=== PATIENT | male | born 1945 | race Caucasian/White ===

== ENCOUNTER 2019-01-26 20:06 | Inpatient (IN) | payer MEDICARE, OTHER, SELFPAY ==
[2019-01-26] VITALS (7 sets, daily range): BP systolic 94–136; BP diastolic 52–90; PULSE 74–150; RESP 10–23; O2SAT 93–98
--- NOTE | 2019-01-26 20:10 | DI.RAD.S_ITS ---
PROCEDURE: XR ACUTE ABDOMEN SERIES INDICATIONS: Abdominal pain, chest pain, near syncope TECHNIQUE: One view chest and two views of the abdomen were acquired. COMPARISON: None. FINDINGS: Surgical changes and devices: Multiple median sternotomy wires are intact. Post cholecystectomy clips.. Chest: Eventration of the right hemidiaphragm. Lungs are clear. Heart size is normal. No pleural effusions. No pneumoperitoneum. Abdomen: Bowel gas pattern is normal. No suspicious calcifications. Visualized solid organ contours appear normal. Bones: No suspicious bony lesions. IMPRESSION: Chest and abdomen without acute radiographic abnormalities. Dictated by: Alban Jorge M.D. on 01/26/2019 at 21:14 Approved by: Alban Jorge M.D. on 01/26/2019 at 21:15
--- NOTE | 2019-01-26 20:11 | ED.SYNCOPE ---
HPI - Syncope General Chief Complaint: Arrhythmia/Palpitations Stated Complaint: Constipated, Dizzy Time Seen by Provider: 01/26/19 20:10 Source: patient and EMS Mode of arrival: EMS Limitations: no limitations History of Present Illness HPI narrative: 73-year-old male with extensive cardiac history presents by EMS for evaluation of a day and a half worth of constipation, and episode of straining on the toilet followed closely by near-syncope. On arrival EMS found his heart rate to be in the 150s. Patient denies any chest pain or shortness of breath. He denies any ongoing dizziness, weakness or lightheadedness. He denies any fever or shaking chills. He denies any abdominal pain or trouble with urination. He states he has been having episodes of dizziness ever since being started on a new blood pressure pill started recently by his primary care provider. 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 [place] complaint: felt faint Onset (ago): minute(s) -: second(s) Prodromal symptoms: lightheaded Witnessed: no Injuries sustained associated with event: none Treatments prior to arrival: none Related Data Home Medications Medication Instructions Recorded Confirmed loratadine [Claritin] 10 mg PO QDAY #0 03/29/13 01/27/19 metoprolol tartrate 50 mg PO QDAY #0 03/29/13 01/27/19 ranitidine HCl [Zantac] 150 mg PO BIDP #0 03/29/13 01/27/19 aspirin 81 mg PO DAILY 01/27/19 01/27/19 cholecalciferol (vitamin D3) 2,000 unit PO DAILY 01/27/19 01/27/19 [Vitamin D3] clopidogrel [Plavix] 75 mg PO DAILY 01/27/19 01/27/19 fluticasone propionate [Flonase 1 spray INTRANASAL DAILY PRN 01/27/19 01/27/19 Allergy Relief] furosemide [Lasix] 20 mg PO DAILY 01/27/19 01/27/19 lorazepam [Ativan] 0.5 mg PO QDAY PRN 01/27/19 01/27/19 losartan 50 mg PO DAILY 01/27/19 01/27/19 multivitamin 1 tab PO DAILY 01/27/19 01/27/19 potassium chloride 20 meq PO DAILY 01/27/19 01/27/19 Slow-Mag 1 tab PO DAILY 01/28/19 01/28/19 zolpidem [Ambien] 5 mg PO BEDTIME PRN 01/28/19 01/28/19 Allergies Allergy/AdvReac Type Severity Reaction Status Date / Time Dljartw-Lum-Lld Reductase Allergy Intermediate Generalized Verified 01/27/19 08:24 Inhibitor swelling Sulfa (Sulfonamide Allergy Intermediate LOW Verified 01/27/19 08:24 Antibiotics) PLATELETS, BRUISING, MOUTH SORES amoxicillin [From Augmentin] AdvReac Mild WORSENING Verified 01/27/19 08:24 OF ACID REFLUX clavulanic acid AdvReac Mild WORSENING Verified 01/27/19 08:24 [From Augmentin] OF ACID REFLUX Review of Systems Constitutional Denies chills, Denies fever(s), Denies lethargy and Denies weakness Eyes Denies change in vision, Denies eye discharge, Denies irritation and Denies loss of vision ENT Ears, Nose, Mouth, and Throat: Denies change in voice, Denies neck pain and Denies sore throat Cardiovascular Denies chest pain, Reports rapid heart rate, Reports irregular heart rhythm, Reports lightheadedness, Denies palpitations, Denies dyspnea, Denies dyspnea on exertion and Denies orthopnea Respiratory Denies cough, Denies dyspnea, Denies dyspnea on exertion and Denies wheezing Gastrointestinal Gastrointestinal: Denies abdominal pain, Denies change in bowel habits, Reports constipation, Denies diarrhea, Denies nausea and Denies vomiting Genitourinary Denies hematuria, Denies flank pain, Denies urinary incontinence and Denies urinary urgency Musculoskeletal Denies neck pain Integumentary/Breasts Denies pruritus, Denies erythema, Denies rash and Denies wounds Neurologic Denies confusion, Denies loss of vision and Denies weakness Psychiatric Denies anxiety, Denies confusion, Denies depression, Denies homicidal ideation and Denies suicidal ideation Endocrine Denies palpitations Hematologic/Lymphatic Denies easy bruising Allergic/Immunologic Denies wheezing [facility] Medical History (Updated 01/27/19 @ 05:36 by CHRIS Sanchez) Allergic rhinitis (Chronic) Antiplatelet or antithrombotic long-term use (Chronic) Coronary artery disease (Chronic) Dyslipidemia (Chronic) Essential hypertension (Chronic) GERD (gastroesophageal reflux disease) (Chronic) JULIA (obstructive sleep apnea) (Chronic) PAF (paroxysmal atrial fibrillation) (Chronic) Valvular heart disease (Chronic) Surgical History (Updated 01/27/19 @ 05:34 by CHRIS Sanchez) Cholecystitis (Chronic) Hx of inguinal herniorrhaphy (Chronic) Family History Mother Cancer Grandmother CVA (cerebral vascular accident) Father Hypertension Social History household members: spouse Smoking Status: Never smoker Family History Mother Cancer Grandmother CVA (cerebral vascular accident) Father Hypertension Social History household members: spouse Smoking Status: Never smoker Exam Narrative Exam Narrative: GENERAL: 73-year-old male appears stated age, resting comfortably HEAD: Atraumatic. Normocephalic. No temporal or scalp tenderness. EYES: Pupils equal round and reactive. Extraocular motions intact. No scleral icterus. No injection or drainage. ENT: Nose without bleeding, purulent drainage or septal hematoma. Throat without erythema, tonsillar hypertrophy or exudate. Uvula midline. Airway patent. NECK: Trachea midline. No JVD or lymphadenopathy. Supple, nontender, no meningeal signs. CARDIOVASCULAR: Tachycardic and irregular rhythm without murmurs, gallops, or rubs. RESPIRATORY: Clear to auscultation. Breath sounds equal bilaterally. No wheezes, rales, or rhonchi. GASTROINTESTINAL: Abdomen soft, non-tender, nondistended. No hepato-splenomegaly, or palpable masses. No guarding. EXTREMITIES: No clubbing, cyanosis, or edema. No joint tenderness, effusion, or edema noted. BACK: Nontender without deformity or crepitance. No flank tenderness. NEURO: AOx3. SKIN: No rash or erythema. Initial Vital Signs Initial Vital Signs: Vital Signs Pulse Rate 149 H 01/26/19 20:10 Respiratory Rate 23 01/26/19 20:10 Blood Pressure 136/90 01/26/19 20:10 Pulse Oximetry 98 01/26/19 20:10 Course Course Narrative: Initially patient had solid response to Cardizem 10 mg which brought her heart rate from the 140s down to the 70s. At this point time patient's home metoprolol was administered orally and after period of time his heart rate remained in the 140s at which point another Cardizem push was given which again brought his heart rate down he was then switched to a Cardizem drip. He is unclear about the onset of his symptoms and thought not to be a candidate for cardioversion. He required admission for stabilization of his heart rate and ongoing evaluation for his near-syncope, which is most likely vasovagal due to constipation and bowel movement. Orders Ordered: Aspirin (Aspirin Ec) 81 mg PO DAILY [facility] Last Admin: 01/28/19 09:34 Dose: 81 mg Admin: 01/27/19 09:48 Dose: 81 mg Clopidogrel Bisulfate (Plavix) 75 mg PO DAILY [facility] Last Admin: 01/28/19 09:34 Dose: 75 mg Admin: 01/27/19 09:48 Dose: 75 mg Diltiazem HCl (Cardizem Cd) 120 mg PO DAILY [facility] Docusate Sodium (Colace) 100 mg PO BID PRN PRN Reason: Constipation Last Admin: 01/27/19 09:49 Dose: 100 mg Fluticasone Propionate (Flonase) 1 spray NASAL DAILY PRN PRN Reason: Allergy Symptoms Furosemide (Lasix) 20 mg PO DAILY [facility] Last Admin: 01/28/19 09:34 Dose: 20 mg Admin: 01/27/19 09:48 Dose: 20 mg Heparin Sodium (Porcine) (Heparin) 5,000 unit SUBCUT BID [facility] Last Admin: 01/28/19 20:36 Dose: 5,000 unit Admin: 01/28/19 09:34 Dose: 5,000 unit Admin: 01/27/19 22:32 Dose: 5,000 unit Admin: 01/27/19 09:48 Dose: 5,000 unit Loratadine (Claritin) 10 mg PO DAILY [facility] Last Admin: 01/28/19 09:35 Dose: 10 mg Admin: 01/27/19 09:48 Dose: 10 mg Admin: 01/27/19 09:47 Dose: Not Given Lorazepam (Ativan) 0.5 mg PO DAILY PRN PRN Reason: Anxiety Last Admin: 01/28/19 09:47 Dose: 0.5 mg Losartan Potassium (Cozaar) 50 mg PO DAILY [facility] Last Admin: 01/28/19 09:35 Dose: 50 mg Admin: 01/27/19 09:49 Dose: 50 mg Melatonin (Melatonin) 6 mg PO BEDTIME [facility] Metoprolol Succinate (Toprol Xl) 200 mg PO 1800 [facility] Last Admin: 01/28/19 17:12 Dose: 200 mg Ondansetron HCl (Zofran) 4 mg IV Q4HR PRN PRN Reason: Nausea And Vomiting Last Admin: 01/28/19 11:19 Dose: 4 mg Potassium Chloride (Klor-Con M20) 20 meq PO DAILY [facility] Last Admin: 01/28/19 09:36 Dose: 20 meq Admin: 01/27/19 09:49 Dose: 20 meq Ranitidine HCl (Zantac) 150 mg PO BID PRN PRN Reason: Dyspepsia Last Admin: 01/28/19 09:47 Dose: 150 mg Sodium Chloride (Normal Saline 0.9% Flush) 10 ml IV BID [facility] Last Admin: 01/28/19 20:37 Dose: 10 ml Admin: 01/28/19 09:39 Dose: 10 ml Admin: 01/27/19 22:33 Dose: 10 ml Sodium Chloride (Normal Saline 0.9% Flush) 10 ml IV PRN PRN PRN Reason: Flush Discontinued Medications Diltiazem HCl (Cardizem) 10 mg IV NOW ONE Stop: 01/26/19 20:11 Last Admin: 01/26/19 20:42 Dose: 10 mg Diltiazem HCl (Cardizem) 10 mg IV NOW ONE Stop: 01/26/19 21:45 Last Admin: 01/26/19 21:46 Dose: 10 mg Diltiazem HCl (Cardizem) 10 mg IV NOW ONE Stop: 01/28/19 18:46 Last Admin: 01/28/19 20:53 Dose: 10 mg Diltiazem HCl (Cardizem) 10 mg IV NOW ONE Stop: 01/28/19 21:32 Enalapril Maleate (Vasotec) 20 mg PO BID [facility] Last Admin: 01/27/19 11:14 Dose: Not Given Sodium Chloride (Normal Saline 0.9%) 1,000 mls @ 150 mls/hr IV CONT [facility] Last Admin: 01/27/19 06:34 Dose: 21 mls/hr Infusion: 01/27/19 06:32 Dose: 0 mls/hr Infusion: 01/27/19 03:10 Dose: 150 mls/hr Admin: 01/26/19 20:42 Dose: 150 mls/hr Diltiazem HCl 125 mg/ Dextrose 125 mls @ 5 mls/hr IV TITRATE DELANEY; Protocol Last Titration: 01/27/19 11:00 Dose: 0 mg/hr, 0 mls/hr Titration: 01/27/19 10:00 Dose: 5 mg/hr, 5 mls/hr Titration: 01/27/19 04:10 Dose: 10 mg/hr, 10 mls/hr Titration: 01/27/19 03:10 Dose: 5 mg/hr, 5 mls/hr Titration: 01/27/19 02:55 Dose: 5 mg/hr, 5 mls/hr Titration: 01/27/19 01:59 Dose: 10 mg/hr, 10 mls/hr Admin: 01/27/19 01:45 Dose: 5 mg/hr, 5 mls/hr Magnesium Sulfate (Magnesium Sulfate) 2 gm in 50 mls @ 25 mls/hr IV NOW ONE Stop: 01/27/19 10:46 Last Infusion: 01/27/19 12:22 Dose: 0 mls/hr Admin: 01/27/19 09:47 Dose: 25 mls/hr Lorazepam (Ativan) 0.5 mg PO DAILY [facility] Last Admin: 01/27/19 09:39 Dose: Not Given Admin: 01/27/19 09:39 Dose: Not Given Lorazepam (Ativan) 0.5 mg PO DAILY PRN PRN Reason: Anxiety Metoprolol Succinate (Toprol Xl) 50 mg PO NOW ONE Stop: 01/26/19 23:13 Last Admin: 01/26/19 23:48 Dose: Not Given Metoprolol Tartrate (Lopressor) 50 mg PO Q6HR [facility] Last Admin: 01/27/19 13:14 Dose: Not Given Admin: 01/27/19 09:45 Dose: 50 mg Metoprolol Tartrate (Lopressor) 50 mg PO Q6HR [facility] Last Admin: 01/28/19 06:04 Dose: 50 mg Admin: 01/27/19 23:31 Dose: 50 mg Admin: 01/27/19 17:40 Dose: 50 mg Metoprolol Tartrate (Lopressor) 2.5 mg IV NOW ONE Stop: 01/27/19 18:01 Last Admin: 01/27/19 18:15 Dose: 2.5 mg Metoprolol Tartrate (Lopressor) 50 mg PO 1200 DELANEY Stop: 01/28/19 12:01 Last Admin: 01/28/19 12:18 Dose: 50 mg Metoprolol Tartrate (Lopressor) 2.5 mg IV NOW ONE Stop: 01/28/19 13:42 Last Admin: 01/28/19 13:44 Dose: 2.5 mg Metoprolol Tartrate (Lopressor) 2.5 mg IV NOW ONE Stop: 01/28/19 17:09 Last Admin: 01/28/19 17:13 Dose: 2.5 mg Trazodone HCl (Desyrel) 25 mg PO BEDTIME ONE Stop: 01/28/19 23:49 Last Admin: 01/27/19 23:55 Dose: 25 mg Vital Signs - 8 hr 01/29/19 00:00 01/29/19 05:00 01/29/19 07:31 Temperature 97.5 F L 97.6 F 97.9 F Pulse Rate 87 97 H 98 H Respiratory Rate 20 24 18 Blood Pressure 118/73 134/75 140/86 Pulse Oximetry 95 94 95 MDM - Syncope Lab Data Result diagrams: 01/26/19 20:45 01/28/19 13:00 Lab Results 01/26/19 01/26/19 01/27/19 Range/Units 20:45 20:45 03:20 WBC 7.3 (4.5-11.0) X10^3/uL RBC 5.42 (4.5-5.9) X10^6/uL Hgb 15.5 (13.5-17.5) g/dL Hct 47.1 (41-53) % MCV 86.9 (80-100) fL MCH 28.6 (26-34) PG MCHC 32.9 (30-36) % RDW 14.6 (11.6-14.8) % Plt Count 173 (150-400) X10^3/uL Neut % (Auto) 74.6 (50-75) % Lymph % (Auto) 12.7 L (25-40) % [place] % (Auto) 9.7 (3-14) % Eos % (Auto) 2.3 (2-4) % Baso % (Auto) 0.7 (0-2) % Neut # (Auto) 5500 (2308-7959) /uL Lymph # (Auto) 900 L (4403-5946) /uL [place] # (Auto) 700 (0-900) /uL Eos # (Auto) 200 (0-450) /uL Baso # (Auto) 100 (0-100) /uL Sodium 136 L (137-145) mmol/L Potassium 3.7 (3.4-5.1) mmol/L Chloride 99 (98-107) mmol/L Carbon Dioxide 26 (22-32) mmol/L BUN 28 H (9-20) mg/dL Creatinine 1.00 (0.66-1.25) mg/dL Estimated GFR > 60.0 (>60) mL/min BUN/Creatinine Ratio 28.0 H (6-22) Glucose 115 H (80-110) mg/dL Hemoglobin A1c (4.0-6.0) % Calcium 8.9 (8.4-10.2) mg/dL Magnesium (1.6-2.3) mg/dL Total Bilirubin 0.7 (0.2-1.3) mg/dL AST 28 (17-59) IU/L ALT 28 (21-72) IU/L Alkaline Phosphatase 95 (38-126) U/L Total Creatine Kinase 57 (55-170) U/L CK-MB (CK-2) TNP CK-MB (CK-2) Rel Index TNP Troponin I 0.036 H (0.01-0.034) ng/mL B-Natriuretic Peptide < 100 (<100) Total Protein 7.5 (6.3-8.2) g/dL Albumin 4.1 (3.5-5.0) g/dL Globulin 3.4 (1.7-4.1) g/dL Albumin/Globulin Ratio 1.2 (1.0-2.8) Lipase 102 (23-300) U/L TSH (0.47-4.68) uIU/mL Urine Color Urine Appearance Urine pH (4.5-8.0) Ur Specific [place] (1.000-1.035) Urine Protein (Negative) Urine Glucose (UA) (Negative) g/dL Urine Ketones (NEGATIVE) Urine Occult Blood (Negative) Urine Nitrate (Negative) Urine Bilirubin (NEGATIVE) Urine Urobilinogen (0.2) E.U./dL Ur Leukocyte Esterase (NEGATIVE) Urine RBC (0-5/HPF) Urine WBC (0-5/HPF) Ur Squamous Epith Cells (0-5/HPF) Urine Bacteria (None) Ur Culture Indicated? Nasal Screen MRSA (PCR) Negative for mrsa (Negative) 01/27/19 01/27/19 01/27/19 Range/Units 05:45 05:45 05:48 WBC (4.5-11.0) X10^3/uL RBC (4.5-5.9) X10^6/uL Hgb (13.5-17.5) g/dL Hct (41-53) % MCV (80-100) fL MCH (26-34) PG MCHC (30-36) % RDW (11.6-14.8) % Plt Count (150-400) X10^3/uL Neut % (Auto) (50-75) % Lymph % (Auto) (25-40) % [place] % (Auto) (3-14) % Eos % (Auto) (2-4) % Baso % (Auto) (0-2) % Neut # (Auto) (2662-6739) /uL Lymph # (Auto) (8755-7026) /uL [place] # (Auto) (0-900) /uL Eos # (Auto) (0-450) /uL Baso # (Auto) (0-100) /uL Sodium 134 L (137-145) mmol/L Potassium 3.9 (3.4-5.1) mmol/L Chloride 101 (98-107) mmol/L Carbon Dioxide 26 (22-32) mmol/L BUN 25 H (9-20) mg/dL Creatinine 0.90 (0.66-1.25) mg/dL Estimated GFR > 60.0 (>60) mL/min BUN/Creatinine Ratio 27.8 H (6-22) Glucose 155 H (80-110) mg/dL Hemoglobin A1c 6.0 (4.0-6.0) % Calcium 8.3 L (8.4-10.2) mg/dL Magnesium 1.8 (1.6-2.3) mg/dL Total Bilirubin (0.2-1.3) mg/dL AST (17-59) IU/L ALT (21-72) IU/L Alkaline Phosphatase (38-126) U/L Total Creatine Kinase (55-170) U/L CK-MB (CK-2) CK-MB (CK-2) Rel Index Troponin I 0.027 (0.01-0.034) ng/mL B-Natriuretic Peptide (<100) Total Protein (6.3-8.2) g/dL Albumin (3.5-5.0) g/dL Globulin (1.7-4.1) g/dL Albumin/Globulin Ratio (1.0-2.8) Lipase (23-300) U/L TSH 1.18 (0.47-4.68) uIU/mL Urine Color Urine Appearance Urine pH (4.5-8.0) Ur Specific [place] (1.000-1.035) Urine Protein (Negative) Urine Glucose (UA) (Negative) g/dL Urine Ketones (NEGATIVE) Urine Occult Blood (Negative) Urine Nitrate (Negative) Urine Bilirubin (NEGATIVE) Urine Urobilinogen (0.2) E.U./dL Ur Leukocyte Esterase (NEGATIVE) Urine RBC (0-5/HPF) Urine WBC (0-5/HPF) Ur Squamous Epith Cells (0-5/HPF) Urine Bacteria (None) Ur Culture Indicated? Nasal Screen MRSA (PCR) (Negative) 01/27/19 01/28/19 Range/Units 12:17 13:00 WBC (4.5-11.0) X10^3/uL RBC (4.5-5.9) X10^6/uL Hgb (13.5-17.5) g/dL Hct (41-53) % MCV (80-100) fL MCH (26-34) PG MCHC (30-36) % RDW (11.6-14.8) % Plt Count (150-400) X10^3/uL Neut % (Auto) (50-75) % Lymph % (Auto) (25-40) % [place] % (Auto) (3-14) % Eos % (Auto) (2-4) % Baso % (Auto) (0-2) % Neut # (Auto) (0534-0354) /uL Lymph # (Auto) (5990-6401) /uL [place] # (Auto) (0-900) /uL Eos # (Auto) (0-450) /uL Baso # (Auto) (0-100) /uL Sodium 137 (137-145) mmol/L Potassium 4.0 (3.4-5.1) mmol/L Chloride 99 (98-107) mmol/L Carbon Dioxide 30 (22-32) mmol/L BUN 24 H (9-20) mg/dL Creatinine 1.00 (0.66-1.25) mg/dL Estimated GFR > 60.0 (>60) mL/min BUN/Creatinine Ratio 24.0 H (6-22) Glucose 95 (80-110) mg/dL Hemoglobin A1c (4.0-6.0) % Calcium 8.8 (8.4-10.2) mg/dL Magnesium 2.0 (1.6-2.3) mg/dL Total Bilirubin (0.2-1.3) mg/dL AST (17-59) IU/L ALT (21-72) IU/L Alkaline Phosphatase (38-126) U/L Total Creatine Kinase (55-170) U/L CK-MB (CK-2) CK-MB (CK-2) Rel Index Troponin I (0.01-0.034) ng/mL B-Natriuretic Peptide (<100) Total Protein (6.3-8.2) g/dL Albumin (3.5-5.0) g/dL Globulin (1.7-4.1) g/dL Albumin/Globulin Ratio (1.0-2.8) Lipase (23-300) U/L TSH (0.47-4.68) uIU/mL Urine Color Yellow Urine Appearance Clear Urine pH 7.0 (4.5-8.0) Ur Specific [place] 1.020 (1.000-1.035) Urine Protein Negative (Negative) Urine Glucose (UA) Negative (Negative) g/dL Urine Ketones Negative (NEGATIVE) Urine Occult Blood Trace-lysed (Negative) Urine Nitrate Negative (Negative) Urine Bilirubin Negative (NEGATIVE) Urine Urobilinogen 1.0 (0.2) E.U./dL Ur Leukocyte Esterase Negative (NEGATIVE) Urine RBC None seen (0-5/HPF) Urine WBC None seen (0-5/HPF) Ur Squamous Epith Cells None seen (0-5/HPF) Urine Bacteria None seen (None) Ur Culture Indicated? Cult not indicated Nasal Screen MRSA (PCR) (Negative) Discharge Plan Departure Patient Disposition: Admitted As Inpatient Clinical Impression: Atrial fibrillation with rapid ventricular response Discharge Date/Time: 01/27/19 03:13 Interventions: ED Discharge Assessment Last Done: 01/27/19 03:12 Admit Date/Time: 01/27/19 03:12 Admit Provider: Angeles Pederson
--- NOTE | 2019-01-26 20:14 | ED_ITS ---
HPI - Syncope General Chief Complaint: Arrhythmia/Palpitations Stated Complaint: Constipated, Dizzy Time Seen by Provider: 01/26/19 20:10 Source: patient and EMS Mode of arrival: EMS Limitations: no limitations History of Present Illness HPI narrative: 73-year-old male with extensive cardiac history presents by EMS for evaluation of a day and a half worth of constipation, and episode of straining on the toilet followed closely by near-syncope. On arrival EMS found his heart rate to be in the 150s. Patient denies any chest pain or shortness of breath. He denies any ongoing dizziness, weakness or lightheadedness. He denies any fever or shaking chills. He denies any abdominal pain or trouble with urination. He states he has been having episodes of dizziness ever since being started on a new blood pressure pill started recently by his primary care provider. His manager of hospital is in [place] complaint: felt faint Onset (ago): minute(s) -: second(s) Prodromal symptoms: lightheaded Witnessed: no Injuries sustained associated with event: none Treatments prior to arrival: none Related Data Home Medications Medication Instructions Recorded Confirmed loratadine [Claritin] 10 mg PO QDAY #0 03/29/13 01/27/19 metoprolol tartrate 50 mg PO QDAY #0 03/29/13 01/27/19 ranitidine HCl [Zantac] 150 mg PO BIDP #0 03/29/13 01/27/19 aspirin 81 mg PO DAILY 01/27/19 01/27/19 cholecalciferol (vitamin D3) 2,000 unit PO DAILY 01/27/19 01/27/19 [Vitamin D3] clopidogrel [Plavix] 75 mg PO DAILY 01/27/19 01/27/19 fluticasone propionate [Flonase 1 spray INTRANASAL DAILY PRN 01/27/19 01/27/19 Allergy Relief] furosemide [Lasix] 20 mg PO DAILY 01/27/19 01/27/19 lorazepam [Ativan] 0.5 mg PO QDAY PRN 01/27/19 01/27/19 losartan 50 mg PO DAILY 01/27/19 01/27/19 multivitamin 1 tab PO DAILY 01/27/19 01/27/19 potassium chloride 20 meq PO DAILY 01/27/19 01/27/19 Slow-Mag 1 tab PO DAILY 01/28/19 01/28/19 zolpidem [Ambien] 5 mg PO BEDTIME PRN 01/28/19 01/28/19 Allergies Allergy/AdvReac Type Severity Reaction Status Date / Time [id number] Reductase Allergy Intermediate Generalized Verified 01/27/19 08:24 Inhibitor swelling Sulfa (Sulfonamide Allergy Intermediate LOW Verified 01/27/19 08:24 Antibiotics) PLATELETS, BRUISING, MOUTH SORES amoxicillin [From Augmentin] AdvReac Mild WORSENING Verified 01/27/19 08:24 OF ACID REFLUX clavulanic acid AdvReac Mild WORSENING Verified 01/27/19 08:24 [From Augmentin] OF ACID REFLUX Review of Systems Constitutional Denies chills, Denies fever(s), Denies lethargy and Denies weakness Eyes Denies change in vision, Denies eye discharge, Denies irritation and Denies loss of vision ENT Ears, Nose, Mouth, and Throat: Denies change in voice, Denies neck pain and Denies sore throat Cardiovascular Denies chest pain, Reports rapid heart rate, Reports irregular heart rhythm, Reports lightheadedness, Denies palpitations, Denies dyspnea, Denies dyspnea on exertion and Denies orthopnea Respiratory Denies cough, Denies dyspnea, Denies dyspnea on exertion and Denies wheezing Gastrointestinal Gastrointestinal: Denies abdominal pain, Denies change in bowel habits, Reports constipation, Denies diarrhea, Denies nausea and Denies vomiting Genitourinary Denies hematuria, Denies flank pain, Denies urinary incontinence and Denies urinary urgency Musculoskeletal Denies neck pain Integumentary/Breasts Denies pruritus, Denies erythema, Denies rash and Denies wounds Neurologic Denies confusion, Denies loss of vision and Denies weakness Psychiatric Denies anxiety, Denies confusion, Denies depression, Denies homicidal ideation and Denies suicidal ideation Endocrine Denies palpitations Hematologic/Lymphatic Denies easy bruising Allergic/Immunologic Denies wheezing [facility] Medical History (Updated 01/27/19 @ 05:36 by CHRIS Sanchez) Allergic rhinitis (Chronic) Antiplatelet or antithrombotic long-term use (Chronic) Coronary artery disease (Chronic) Dyslipidemia (Chronic) Essential hypertension (Chronic) GERD (gastroesophageal reflux disease) (Chronic) JULIA (obstructive sleep apnea) (Chronic) PAF (paroxysmal atrial fibrillation) (Chronic) Valvular heart disease (Chronic) Surgical History (Updated 01/27/19 @ 05:34 by CHRIS Sanchez) Cholecystitis (Chronic) Hx of inguinal herniorrhaphy (Chronic) Family History Mother Cancer Grandmother CVA (cerebral vascular accident) Father Hypertension Social History household members: spouse Smoking Status: Never smoker Family History Mother Cancer Grandmother CVA (cerebral vascular accident) Father Hypertension Social History household members: spouse Smoking Status: Never smoker Exam Narrative Exam Narrative: GENERAL: 73-year-old male appears stated age, resting comfortably HEAD: Atraumatic. Normocephalic. No temporal or scalp tenderness. EYES: Pupils equal round and reactive. Extraocular motions intact. No scleral i cterus. No injection or drainage. ENT: Nose without bleeding, purulent drainage or septal hematoma. Throat without erythema, tonsillar hypertrophy or exudate. Uvula midline. Airway patent. NECK: Trachea midline. No JVD or lymphadenopathy. Supple, nontender, no meningeal signs. CARDIOVASCULAR: Tachycardic and irregular rhythm without murmurs, gallops, or rubs. RESPIRATORY: Clear to auscultation. Breath sounds equal bilaterally. No wheezes, rales, or rhonchi. GASTROINTESTINAL: Abdomen soft, non-tender, nondistended. No hepato- splenomegaly, or palpable masses. No guarding. EXTREMITIES: No clubbing, cyanosis, or edema. No joint tenderness, effusion, or edema noted. BACK: Nontender without deformity or crepitance. No flank tenderness. NEURO: AOx3. SKIN: No rash or erythema. Initial Vital Signs Initial Vital Signs: Vital Signs Pulse Rate 149 H 01/26/19 20:10 Respiratory Rate 23 01/26/19 20:10 Blood Pressure 136/90 01/26/19 20:10 Pulse Oximetry 98 01/26/19 20:10 Course Course Narrative: Initially patient had solid response to Cardizem 10 mg which brought her heart rate from the 140s down to the 70s. At this point time patient's home metoprolol was administered orally and after period of time his heart rate remained in the 140s at which point another Cardizem push was given which again brought his heart rate down he was then switched to a Cardizem drip. He is unclear about the onset of his symptoms and thought not to be a candidate for cardioversion. He required admission for stabilization of his heart rate and ongoing evaluation for his near-syncope, which is most likely vasovagal due to constipation and bowel movement. Orders Ordered: Aspirin (Aspirin Ec) 81 mg PO DAILY [facility] Last Admin: 01/28/19 09:34 Dose: 81 mg Admin: 01/27/19 09:48 Dose: 81 mg Clopidogrel Bisulfate (Plavix) 75 mg PO DAILY [facility] Last Admin: 01/28/19 09:34 Dose: 75 mg Admin: 01/27/19 09:48 Dose: 75 mg Diltiazem HCl (Cardizem Cd) 120 mg PO DAILY [facility] Docusate Sodium (Colace) 100 mg PO BID PRN PRN Reason: Constipation Last Admin: 01/27/19 09:49 Dose: 100 mg Fluticasone Propionate (Flonase) 1 spray NASAL DAILY PRN PRN Reason: Allergy Symptoms Furosemide (Lasix) 20 mg PO DAILY [facility] Last Admin: 01/28/19 09:34 Dose: 20 mg Admin: 01/27/19 09:48 Dose: 20 mg Heparin Sodium (Porcine) (Heparin) 5,000 unit SUBCUT BID [facility] Last Admin: 01/28/19 20:36 Dose: 5,000 unit Admin: 01/28/19 09:34 Dose: 5,000 unit Admin: 01/27/19 22:32 Dose: 5,000 unit Admin: 01/27/19 09:48 Dose: 5,000 unit Loratadine (Claritin) 10 mg PO DAILY [facility] Last Admin: 01/28/19 09:35 Dose: 10 mg Admin: 01/27/19 09:48 Dose: 10 mg Admin: 01/27/19 09:47 Dose: Not Given Lorazepam (Ativan) 0.5 mg PO DAILY PRN PRN Reason: Anxiety Last Admin: 01/28/19 09:47 Dose: 0.5 mg Losartan Potassium (Cozaar) 50 mg PO DAILY [facility] Last Admin: 01/28/19 09:35 Dose: 50 mg Admin: 01/27/19 09:49 Dose: 50 mg Melatonin (Melatonin) 6 mg PO BEDTIME [facility] Metoprolol Succinate (Toprol Xl) 200 mg PO 1800 [facility] Last Admin: 01/28/19 17:12 Dose: 200 mg Ondansetron HCl (Zofran) 4 mg IV Q4HR PRN PRN Reason: Nausea And Vomiting Last Admin: 01/28/19 11:19 Dose: 4 mg Potassium Chloride (Klor-Con M20) 20 meq PO DAILY [facility] Last Admin: 01/28/19 09:36 Dose: 20 meq Admin: 01/27/19 09:49 Dose: 20 meq Ranitidine HCl (Zantac) 150 mg PO BID PRN PRN Reason: Dyspepsia Last Admin: 01/28/19 09:47 Dose: 150 mg Sodium Chloride (Normal Saline 0.9% Flush) 10 ml IV BID [facility] Last Admin: 01/28/19 20:37 Dose: 10 ml Admin: 01/28/19 09:39 Dose: 10 ml Admin: 01/27/19 22:33 Dose: 10 ml Sodium Chloride (Normal Saline 0.9% Flush) 10 ml IV PRN PRN PRN Reason: Flush Discontinued Medications Diltiazem HCl (Cardizem) 10 mg IV NOW ONE Stop: 01/26/19 20:11 Last Admin: 01/26/19 20:42 Dose: 10 mg Diltiazem HCl (Cardizem) 10 mg IV NOW ONE Stop: 01/26/19 21:45 Last Admin: 01/26/19 21:46 Dose: 10 mg Diltiazem HCl (Cardizem) 10 mg IV NOW ONE Stop: 01/28/19 18:46 Last Admin: 01/28/19 20:53 Dose: 10 mg Diltiazem HCl (Cardizem) 10 mg IV NOW ONE Stop: 01/28/19 21:32 Enalapril Maleate (Vasotec) 20 mg PO BID [facility] Last Admin: 01/27/19 11:14 Dose: Not Given Sodium Chloride (Normal Saline 0.9%) 1,000 mls @ 150 mls/hr IV CONT [facility] Last Admin: 01/27/19 06:34 Dose: 21 mls/hr Infusion: 01/27/19 06:32 Dose: 0 mls/hr Infusion: 01/27/19 03:10 Dose: 150 mls/hr Admin: 01/26/19 20:42 Dose: 150 mls/hr Diltiazem HCl 125 mg/ Dextrose 125 mls @ 5 mls/hr IV TITRATE [facility]; Protocol Last Titration: 01/27/19 11:00 Dose: 0 mg/hr, 0 mls/hr Titration: 01/27/19 10:00 Dose: 5 mg/hr, 5 mls/hr Titration: 01/27/19 04:10 Dose: 10 mg/hr, 10 mls/hr Titration: 01/27/19 03:10 Dose: 5 mg/hr, 5 mls/hr Titration: 01/27/19 02:55 Dose: 5 mg/hr, 5 mls/hr Titration: 01/27/19 01:59 Dose: 10 mg/hr, 10 mls/hr Admin: 01/27/19 01:45 Dose: 5 mg/hr, 5 mls/hr Magnesium Sulfate (Magnesium Sulfate) 2 gm in 50 mls @ 25 mls/hr IV NOW ONE Stop: 01/27/19 10:46 Last Infusion: 01/27/19 12:22 Dose: 0 mls/hr Admin: 01/27/19 09:47 Dose: 25 mls/hr Lorazepam (Ativan) 0.5 mg PO DAILY [facility] Last Admin: 01/27/19 09:39 Dose: Not Given Admin: 01/27/19 09:39 Dose: Not Given Lorazepam (Ativan) 0.5 mg PO DAILY PRN PRN Reason: Anxiety Metoprolol Succinate (Toprol Xl) 50 mg PO NOW ONE Stop: 01/26/19 23:13 Last Admin: 01/26/19 23:48 Dose: Not Given Metoprolol Tartrate (Lopressor) 50 mg PO Q6HR [facility] Last Admin: 01/27/19 13:14 Dose: Not Given Admin: 01/27/19 09:45 Dose: 50 mg Metoprolol Tartrate (Lopressor) 50 mg PO Q6HR [facility] Last Admin: 01/28/19 06:04 Dose: 50 mg Admin: 01/27/19 23:31 Dose: 50 mg Admin: 01/27/19 17:40 Dose: 50 mg Metoprolol Tartrate (Lopressor) 2.5 mg IV NOW ONE Stop: 01/27/19 18:01 Last Admin: 01/27/19 18:15 Dose: 2.5 mg Metoprolol Tartrate (Lopressor) 50 mg PO 1200 [facility] Stop: 01/28/19 12:01 Last Admin: 01/28/19 12:18 Dose: 50 mg Metoprolol Tartrate (Lopressor) 2.5 mg IV NOW ONE Stop: 01/28/19 13:42 Last Admin: 01/28/19 13:44 Dose: 2.5 mg Metoprolol Tartrate (Lopressor) 2.5 mg IV NOW ONE Stop: 01/28/19 17:09 Last Admin: 01/28/19 17:13 Dose: 2.5 mg Trazodone HCl (Desyrel) 25 mg PO BEDTIME ONE Stop: 01/28/19 23:49 Last Admin: 01/27/19 23:55 Dose: 25 mg Vital Signs - 8 hr 01/29/19 00:00 01/29/19 05:00 01/29/19 07:31 Temperature 97.5 F L 97.6 F 97.9 F Pulse Rate 87 97 H 98 H Respiratory Rate 20 24 18 Blood Pressure 118/73 134/75 140/86 Pulse Oximetry 95 94 95 MDM - Syncope Lab Data Result diagrams: 01/26/19 20:45 01/28/19 13:00 Lab Results 01/26/19 01/26/19 01/27/19 Range/Units 20:45 20:45 03:20 WBC 7.3 (4.5-11.0) X10^3/uL RBC 5.42 (4.5-5.9) X10^6/uL Hgb 15.5 (13.5-17.5) g/dL Hct 47.1 (41-53) % MCV 86.9 (80-100) fL MCH 28.6 (26-34) PG MCHC 32.9 (30-36) % RDW 14.6 (11.6-14.8) % Plt Count 173 (150-400) X10^3/uL Neut % (Auto) 74.6 (50-75) % Lymph % (Auto) 12.7 L (25-40) % Dewitt % (Auto) 9.7 (3-14) % Eos % (Auto) 2.3 (2-4) % Baso % (Auto) 0.7 (0-2) % Neut # (Auto) 5500 (6985-7965) /uL Lymph # (Auto) 900 L (9594-9088) /uL Dewitt # (Auto) 700 (0-900) /uL Eos # (Auto) 200 (0-450) /uL Baso # (Auto) 100 (0-100) /uL Sodium 136 L (137-145) mmol/L Potassium 3.7 (3.4-5.1) mmol/L Chloride 99 (98-107) mmol/L Carbon Dioxide 26 (22-32) mmol/L BUN 28 H (9-20) mg/dL Creatinine 1.00 (0.66-1.25) mg/dL Estimated GFR > 60.0 (>60) mL/min BUN/Creatinine Ratio 28.0 H (6-22) Glucose 115 H (80-110) mg/dL Hemoglobin A1c (4.0-6.0) % Calcium 8.9 (8.4-10.2) mg/dL Magnesium (1.6-2.3) mg/dL Total Bilirubin 0.7 (0.2-1.3) mg/dL AST 28 (17-59) IU/L ALT 28 (21-72) IU/L Alkaline Phosphatase 95 (38-126) U/L Total Creatine Kinase 57 (55-170) U/L CK-MB (CK-2) TNP CK-MB (CK-2) Rel Index TNP Troponin I 0.036 H (0.01-0.034) ng/mL B-Natriuretic Peptide < 100 (<100) Total Protein 7.5 (6.3-8.2) g/dL Albumin 4.1 (3.5-5.0) g/dL Globulin 3.4 (1.7-4.1) g/dL Albumin/Globulin Ratio 1.2 (1.0-2.8) Lipase 102 (23-300) U/L TSH (0.47-4.68) uIU/mL Urine Color Urine Appearance Urine pH (4.5-8.0) Ur Specific [place] (1.000-1.035) Urine Protein (Negative) Urine Glucose (UA) (Negative) g/dL Urine Ketones (NEGATIVE) Urine Occult Blood (Negative) Urine Nitrate (Negative) Urine Bilirubin (NEGATIVE) Urine Urobilinogen (0.2) E.U./dL Ur Leukocyte Esterase (NEGATIVE) Urine RBC (0-5/HPF) Urine WBC (0-5/HPF) Ur Squamous Epith Cells (0-5/HPF) Urine Bacteria (None) Ur Culture Indicated? Nasal Screen MRSA (PCR) Negative for mrsa (Negative) 01/27/19 01/27/19 01/27/19 Range/Units 05:45 05:45 05:48 WBC (4.5-11.0) X10^3/uL RBC (4.5-5.9) X10^6/uL Hgb (13.5-17.5) g/dL Hct (41-53) % MCV (80-100) fL MCH (26-34) PG MCHC (30-36) % RDW (11.6-14.8) % Plt Count (150-400) X10^3/uL Neut % (Auto) (50-75) % Lymph % (Auto) (25-40) % Dewitt % (Auto) (3-14) % Eos % (Auto) (2-4) % Baso % (Auto) (0-2) % Neut # (Auto) (6350-3327) /uL Lymph # (Auto) (0083-5315) /uL Dewitt # (Auto) (0-900) /uL Eos # (Auto) (0-450) /uL Baso # (Auto) (0-100) /uL Sodium 134 L (137-145) mmol/L Potassium 3.9 (3.4-5.1) mmol/L Chloride 101 (98-107) mmol/L Carbon Dioxide 26 (22-32) mmol/L BUN 25 H (9-20) mg/dL Creatinine 0.90 (0.66-1.25) mg/dL Estimated GFR > 60.0 (>60) mL/min BUN/Creatinine Ratio 27.8 H (6-22) Glucose 155 H (80-110) mg/dL Hemoglobin A1c 6.0 (4.0-6.0) % Calcium 8.3 L (8.4-10.2) mg/dL Magnesium 1.8 (1.6-2.3) mg/dL Total Bilirubin (0.2-1.3) mg/dL AST (17-59) IU/L ALT (21-72) IU/L Alkaline Phosphatase (38-126) U/L Total Creatine Kinase (55-170) U/L CK-MB (CK-2) CK-MB (CK-2) Rel Index Troponin I 0.027 (0.01-0.034) ng/mL B-Natriuretic Peptide (<100) Total Protein (6.3-8.2) g/dL Albumin (3.5-5.0) g/dL Globulin (1.7-4.1) g/dL Albumin/Globulin Ratio (1.0-2.8) Lipase (23-300) U/L TSH 1.18 (0.47-4.68) uIU/mL Urine Color Urine Appearance Urine pH (4.5-8.0) Ur Specific [place] (1.000-1.035) Urine Protein (Negative) Urine Glucose (UA) (Negative) g/dL Urine Ketones (NEGATIVE) Urine Occult Blood (Negative) Urine Nitrate (Negative) Urine Bilirubin (NEGATIVE) Urine Urobilinogen (0.2) E.U./dL Ur Leukocyte Esterase (NEGATIVE) Urine RBC (0-5/HPF) Urine WBC (0-5/HPF) Ur Squamous Epith Cells (0-5/HPF) Urine Bacteria (None) Ur Culture Indicated? Nasal Screen MRSA (PCR) (Negative) 01/27/19 01/28/19 Range/Units 12:17 13:00 WBC (4.5-11.0) X10^3/uL RBC (4.5-5.9) X10^6/uL Hgb (13.5-17.5) g/dL Hct (41-53) % MCV (80-100) fL MCH (26-34) PG MCHC (30-36) % RDW (11.6-14.8) % Plt Count (150-400) X10^3/uL Neut % (Auto) (50-75) % Lymph % (Auto) (25-40) % Dewitt % (Auto) (3-14) % Eos % (Auto) (2-4) % Baso % (Auto) (0-2) % Neut # (Auto) (1337-0850) /uL Lymph # (Auto) (4302-9322) /uL Dewitt # (Auto) (0-900) /uL Eos # (Auto) (0-450) /uL Baso # (Auto) (0-100) /uL Sodium 137 (137-145) mmol/L Potassium 4.0 (3.4-5.1) mmol/L Chloride 99 (98-107) mmol/L Carbon Dioxide 30 (22-32) mmol/L BUN 24 H (9-20) mg/dL Creatinine 1.00 (0.66-1.25) mg/dL Estimated GFR > 60.0 (>60) mL/min BUN/Creatinine Ratio 24.0 H (6-22) Glucose 95 (80-110) mg/dL Hemoglobin A1c (4.0-6.0) % Calcium 8.8 (8.4-10.2) mg/dL Magnesium 2.0 (1.6-2.3) mg/dL Total Bilirubin (0.2-1.3) mg/dL AST (17-59) IU/L ALT (21-72) IU/L Alkaline Phosphatase (38-126) U/L Total Creatine Kinase (55-170) U/L CK-MB (CK-2) CK-MB (CK-2) Rel Index Troponin I (0.01-0.034) ng/mL B-Natriuretic Peptide (<100) Total Protein (6.3-8.2) g/dL Albumin (3.5-5.0) g/dL Globulin (1.7-4.1) g/dL Albumin/Globulin Ratio (1.0-2.8) Lipase (23-300) U/L TSH (0.47-4.68) uIU/mL Urine Color Yellow Urine Appearance Clear Urine pH 7.0 (4.5-8.0) Ur Specific Dundee 1.020 (1.000-1.035) Urine Protein Negative (Negative) Urine Glucose (UA) Negative (Negative) g/dL Urine Ketones Negative (NEGATIVE) Urine Occult Blood Trace-lysed (Negative) Urine Nitrate Negative (Negative) Urine Bilirubin Negative (NEGATIVE) Urine Urobilinogen 1.0 (0.2) E.U./dL Ur Leukocyte Esterase Negative (NEGATIVE) Urine RBC None seen (0-5/HPF) Urine WBC None seen (0-5/HPF) Ur Squamous Epith Cells None seen (0-5/HPF) Urine Bacteria None seen (None) Ur Culture Indicated? Cult not indicated Nasal Screen MRSA (PCR) (Negative) Discharge Plan Departure Patient Disposition: Admitted As Inpatient Clinical Impression: Atrial fibrillation with rapid ventricular response Discharge Date/Time: 01/27/19 03:13 Interventions: ED Discharge Assessment Last Done: 01/27/19 03:12 Admit Date/Time: 01/27/19 03:12 Admit Provider: Angeles Pederson
[2019-01-26] MEDS: dilTIAZem 5 MG/ML SDV 10 MG IV ×2 (20:42→21:46)
[2019-01-26] MEDS: SODIUM CHLORIDE 0.9% 1,000 ML 150 ML IV (20:42)
[2019-01-26 20:54] LABS: Add Manual Diff / Slide Review NO; Basophils Absolute Auto 100 /uL (0-100); Basophils Percent Auto 0.7 % (0-2); Eosinophils Absolute Auto 200 /uL (0-450); Eosinophils Percent Auto 2.3 % (2-4); Hematocrit 47.1 % (41-53); Hemoglobin 15.5 g/dL (13.5-17.5); Lymphocytes Absolute Auto 900 /uL (1100-4500); Lymphocytes Percent Auto 12.7 % (25-40); Mean Corpuscular HGB Conc 32.9 % (30-36); Mean Corpuscular Hemoglobin 28.6 PG (26-34); Mean Corpuscular Volume 86.9 fL (80-100); Monocytes Absolute Auto 700 /uL (0-900); Monocytes Percent Auto 9.7 % (3-14); Neutrophils Absolute Auto 5500 /uL (1500-7000); Neutrophils Percent Auto 74.6 % (50-75); Platelet Count 173 X10^3/uL (150-400); Red Blood Cell Count 5.42 X10^6/uL (4.5-5.9); Red Cell Distribution Width 14.6 % (11.6-14.8); White Blood Cell Count 7.3 X10^3/uL (4.5-11.0)
[2019-01-26 21:05] LABS: Alanine Aminotransferase 28 IU/L (21-72); Albumin 4.1 g/dL (3.5-5.0); Albumin Globulin Ratio 1.2 (1.0-2.8); Alkaline Phosphatase 95 U/L (38-126); Aspartate Aminotransferase 28 IU/L (17-59); Bilirubin Total 0.7 mg/dL (0.2-1.3); Blood Urea Nitrogen 28 mg/dL (9-20); Calcium 8.9 mg/dL (8.4-10.2); Carbon Dioxide 26 mmol/L (22-32); Chloride 99 mmol/L (98-107); Creatine Kinase 57 U/L (55-170); Estimated Glomerular Filt Rate > 60.0 mL/min (>60); Globulin 3.4 g/dL (1.7-4.1); Glucose 115 mg/dL (80-110); HEMOLYSIS < 15 (0-50); Lipase 102 U/L (23-300); Potassium 3.7 mmol/L (3.4-5.1); Sodium 136 mmol/L (137-145); Total Protein 7.5 g/dL (6.3-8.2)
[2019-01-26 21:09] LABS: B Type Natriuretic Peptide < 100 (<100)
[2019-01-26 21:16] LABS: Troponin I 0.036 ng/mL (0.01-0.034)
--- NOTE | 2019-01-26 23:49 | PC.NURSE ---
Pt has own medications at bedside. Provider ok for patient to take own dose of metoprolol 50 mg ER at this time.
[2019-01-27] VITALS (22 sets, daily range): BP systolic 104–160; BP diastolic 52–95; PULSE 64–150; RESP 11–23; TEMP 36.3–36.8; O2SAT 93–98; BMI 36.6
--- NOTE | 2019-01-27 | DI.ECHO.S_ITS ---
[facility] +---------+ : : [address] : [place] : : : : [id number] : : : : Phone: [phone] Echocardiogram Report + + :Name: TAM MENDEZ Study Date: 01/27/2019 Height: 69 in : :[facility] Weight: 247 lb : : Gender: Male BSA: 2.3 m2 : :: 1945 Age: 73 yrs BP: 116/63 mmHg: :Reason For Study: [facility], H/O AOV REPLACEMENT : :Ordering Physician: Milton : :Hospitalist Performed By: Annie Farmer : :Referring: JD MAURICIO : + + Interpretation Summary The patient was in atrial fibrillation with heart rates between 45 and 77 bpm during the exam. Normal left ventricle size with ejection fraction 60-65%. Severely dilated left atrium. The prosthetic aortic valve is well-seated. Mild mitral regurgitation. The right ventricular systolic pressure is estimated to be at least least 34 mmHg based on an estimated right atrial pressure of 8 mm Hg. Procedure: A two-dimensional transthoracic echocardiogram with color flow and Doppler was performed. The study quality was technically adequate. There is no prior echocardiogram noted for this patient. The patient was in atrial fibrillation with heart rates between 45 and 77 bpm during the exam. Left Ventricle: The left ventricle is normal in size. There is normal left ventricular wall thickness. The left ventricular ejection fraction is normal. The ejection fraction is estimated to be 60-65%. There are no obvious focal wall motion abnormalities noted but poor endocardial definition reduces the sensitivity for the detection of such. Diastolic function could not be accurately assessed due to atrial fibrillation. Right Ventricle: The right ventricle is normal in size and function. Atria: The left atrium is severely dilated. Right atrial size is normal. There is no Doppler evidence for an interatrial shunt. Mitral Valve: The mitral valve is normal. There is mild mitral regurgitation. Aortic Valve: There is a porcine aortic valve. The prosthetic aortic valve is well-seated. There is trace intravalvular regurgitation through the prosthetic aortic valve. There is probable normal prosthetic aortic valve function. The peak aortic velocity is 2.3 m/sec. Tricuspid Valve: The tricuspid valve is normal. There is trace tricuspid regurgitation. The right ventricular systolic pressure is estimated to be at least least 34 mmHg based on an estimated right atrial pressure of 8 mm Hg. Pulmonic Valve: The pulmonic valve is not well seen, but is grossly normal. There is a trace or physiologic amount of pulmonic regurgitation. Great Vessels: The aortic root is normal size. The ascending aorta is normal in size. The aortic arch is normal in size. The pulmonary is not well visualized. The IVC is of normal diameter and collapses less than 50% with a sniff. This suggests a right atrial pressure of 8 mm Hg. Pericardium/ Pleura There is no pericardial effusion. There is no pleural effusion. MMode/2D Measurements & Calculations LVIDd: 4.0 cm LVOT diam: 2.1 cm LVIDs: 2.0 cm Ao root diam: 3.5 cm FS: 50.9 % asc Aorta Diam: 3.5 cm EPSS: 0.32 cm Ao Arch Diam (Prox Trans): 3.1 cm IVSd: 0.90 cm LVPWd: 0.78 cm LV walker. diameter/BSA (cm/m^2): 1.8 LV sys. diameter/BSA (cm/m^2): 0.87 LA A2 area: 34.6 cm2 RA long axis: 4.5 cm LA A4 area: 32.4 cm2 RA area: 17.2 cm2 LA length (vol): 7.3 cm RA vol: 56.4 ml LA vol: 130.9 ml RA : 25.0 ml/m2 LA vol index: 57.9 ml/m2 IVC diam: 1.8 cm RVD1 (basal): 4.2 cm RVD2 (mid): 3.1 cm TAPSE: 0.90 cm Doppler Measurements & Calculations Ao V2 max: 227.5 cm/sec LVOT Max Donnell: 75.1 cm/sec Ao V2 mean: 160.9 cm/sec LV V1 max P.3 mmHg Ao max P.7 mmHg LV V1 VTI: 15.8 cm Ao mean P.5 mmHg EDUARDO(I,D): 1.2 cm2 Ao V2 VTI: 43.7 cm EDUARDO(V,D): 1.1 cm2 sev ratio: 0.36 EDUARDO indexed to BSA (cm^2/m^2): 0.53 MV E max donnell: 87.7 cm/sec TR max donnell: 256.1 cm/sec MV P1/2t: 49.9 msec TR max P.2 mmHg PA V2 max: 63.5 cm/sec PA V2 mean: 41.0 cm/sec PA mean P.76 mmHg PA Accel Time: 0.06 sec MV P1/2t max donnell: 87.9 cm/sec SV(LVOT): 52.3 ml MVA(P1/2t): 4.4 cm2 Electronically signed by: Rodolfo Mata on Reading Physician:01/27/2019 02:31 PM
[2019-01-27] MEDS: dilTIAZem 125 MG in DEXTROSE 5 % IN WATER 100 ML IV (01:45)
--- NOTE | 2019-01-27 03:26 | P.HP_ITS ---
History of Present Illness Date Patient Seen: 01/27/19 Time Patient Seen: 03:26 Chief complaint: Constipated, Dizzy Narrative: Patient was transferred via EMS from his home and triaged in the ED 01/26/2019 @ 20:10. On initial assessment was found to be tachycardic with an atrial flutter on EKG. Associated symptoms included shortness of breath, diaphoresis, and lightheadedness. Denies experiencing chest pain or palpitations at time of the event. Patient reports not feeling well since . Since that time has been experiencing epigastric discomfort that he attributes to symptoms of dyspepsia / GERD. Day prior to ED presentation has been having intermittent left chest discomfort. There was no radiation to the shoulder, extremities, neck, or jaw. He reports having previous symptoms of GERD with diffuse chest discomfort in it times radiation to his extremities. Describes chest discomfort as sharp and magnitude as 3-4/10, denies pressure-like sensation. Chest discomfort noted to be intermittent in duration. At that time fairly asymptomatic. Overnight notes having less than restful sleep with multiple periods of wakefulness overnight and urgency to drink cold water, which is unusual for the patient. This morning was feeling dizzy, however did not check his blood pressure or heart rate. Later in the day patient was watching his grandchildren, he got up to use the restroom, while walking across the room felt lightheaded, short of breath, and diaphoretic. [place] eminent loss of consciousness. He called his to summon EMS. Patient did not have a syncopal event or loss of consciousness. Upon contact with EMS patient was found to have elevated heart r ate, consequently he was brought to the ED for further evaluation. Initial EKG showed atrial flutter w/rapid ventricular rate. In ED was treated with 10 mg bolus of IV diltiazem x2, oral metoprolol, and a liter of NS bolus. Intervention was partially effective. Patient was unable to sustain a con trolled ventricular rate requiring initiation of the Cardizem drip. Patient is being admitted for AFIB / RVR. Patient has a complex cardiac medical history for which she is unable to provide significant details. The following history obtained. PMH of CAD (stenting x8, last 5 yrs ago), HTN, PAF (s/p ablation w/ MILVIA closure), valvular surgery (h/o ablation), dyslipidemia (h/o statin intolerance), JULIA (not on CPAP), GERD, and BPH. No prior history of an TN, CHF, CVA/TIA, or thrombosis. Patient is not anti-coagulated. According to his account, it seems that he may have had left atrial appendage closure at time of an ablation for his underlying AFib, 3 years ago by report. This in patient's other history would need to be verified with his hedge trimmer. He seen Nelson Swain in [facility]. His PCP is Dr. Maza. ED presentation, work-up VS 136/90 HR 149 RR 23 SpO2 98% (room air) WBC 7.3 Hgb 15.5 Hct 47.1 Plt 173 Na 136 K 3.6 Cl 99 CO2 26 Ca 8.9 Glu 115 BUN 28 Cr 1 Trop 0.036 BNP < 100 EKG #1, 01/26/2019... atrial flutter and intermittent atrial tachyarrhythmia w/ RVR, non-specific ST-T abnormality Patient History Medical History (Updated 01/27/19 @ 05:36 by CHRIS Sanchez) Allergic rhinitis (Chronic) Antiplatelet or antithrombotic long-term use (Chronic) Coronary artery disease (Chronic) Dyslipidemia (Chronic) Essential hypertension (Chronic) GERD (gastroesophageal reflux disease) (Chronic) JULIA (obstructive sleep apnea) (Chronic) PAF (paroxysmal atrial fibrillation) (Chronic) Valvular heart disease (Chronic) Surgical History (Updated 01/27/19 @ 05:34 by CHRIS Sanchez) Cholecystitis (Chronic) Hx of inguinal herniorrhaphy (Chronic) Family History Mother Cancer Grandmother CVA (cerebral vascular accident) Father Hypertension Social History household members: spouse Smoking Status: Never smoker Family & Social History Family History Mother Cancer Grandmother CVA (cerebral vascular accident) Father Hypertension Social History: . Lives with in his own home. Retired. Tobacco & Substance use: Life long non-smoker. Drinks socially, every 2 moths by report. Denies prior or current recreational drug use. Meds Home Medications Medication Instructions Recorded Confirmed Type CA PANTOTHENATE/FOLIC ACID/VIT 1 tab PO Q DAY #0 03/22/11 History (ONE DAILY MULTIVITAMINS) lorazepam [Ativan] 0.5 mg PO QDAY PRN #30 12/06/11 Rx enalapril maleate 20 mg PO BID #0 07/15/12 History ASPIRIN (#ASPIRIN) 1 tabs PO QDAY #0 08/30/12 History Clopidogrel Hydrogen Sulfate 75 mg PO QDAY #0 08/30/12 History (PLAVIX) CHOLECALCIFEROL (VITAMIN D) 2,000 units PO QDAY #0 03/29/13 History loratadine [Claritin] 10 mg PO QDAY #0 03/29/13 History metoprolol tartrate 50 mg PO QDAY #0 03/29/13 History pantoprazole [Protonix] 40 mg PO QDAY #0 03/29/13 History ranitidine HCl [Zantac] 150 mg PO BIDP #0 03/29/13 History Allergies Allergy/AdvReac Type Severity Reaction Status Date / Time Sulfa (Sulfonamide Allergy Intermediate LOW Unverified 01/02/18 12:56 Antibiotics) PLATELETS, BRUISING, MOUTH SORES amoxicillin [From Augmentin] AdvReac Mild WORSENING Unverified 01/02/18 12:56 OF ACID REFLUX clavulanic acid AdvReac Mild WORSENING Unverified 01/02/18 12:56 [From Augmentin] OF ACID REFLUX Review of Systems Review of Systems All systems reviewed & are unremarkable except as noted in HPI and below Exam Vital Signs (past 8 hours): - 01/26/19 20:10 01/26/19 20:42 01/26/19 21:00 Temperature Pulse Rate 149 H 150 H 74 Respiratory Rate 23 11 L Blood Pressure 136/90 125/67 Blood Pressure [Right Arm] 94/52 L Pulse Oximetry 98 93 01/26/19 21:46 01/26/19 21:53 01/26/19 22:33 Temperature Pulse Rate 150 H 130 H 126 H Respiratory Rate 23 13 Blood Pressure 111/72 Blood Pressure [Right Arm] 106/59 L 101/61 Pulse Oximetry 96 01/26/19 23:53 01/27/19 01:52 01/27/19 02:44 Temperature Pulse Rate 147 H 145 H 85 Respiratory Rate 10 L 11 L 14 Blood Pressure Blood Pressure [Right Arm] 122/68 129/86 106/64 Pulse Oximetry 96 95 94 01/27/19 02:56 01/27/19 03:03 Temperature 98.2 F Pulse Rate 81 144 H Respiratory Rate 12 14 Blood Pressure 124/71 Blood Pressure [Right Arm] 104/55 L Pulse Oximetry 93 97 Oxygen Delivery Method Room Air Narrative Exam Narrative: Constitutional: NAD, obese habitus (BMI 36.6), Neurologic: AOx3, no focal neurological deficits Head: NC, AT Eyes: PERRL, EOMI, Ears: external ears normal, no otorrhea Nose: external nose normal, no rhinorrhea or epistaxis Throat: MMM, oropharynx w/o exudate Neck: no masses, lymphadenopathy, or JVD Chest / Respiratory: equal chest rise, unlabored respiratory effort, no dyspnea or tachypnea at rest, CTA, diminished bases. Left anterior chest, tender w/ palpation. Heart / CV: Irregularly irregular Abdomen / GI: marked central obesity, NT, ND, + BS, HSM difficult to palpate secondary to large abdominal contour : no suprapubic tenderness, no CVA Peripheral / Vascular: warm to touch, DP and PT pulses palpable, no edema Musc: full ROM of upper and lower extremities, adequate muscle tone and bulk Skin: no ecchymosis or suspicious lesions / ulcers Objective Labs Result Diagrams: 01/26/19 20:45 01/26/19 20:45 Labs: Laboratory Results - last 24 hr 01/26/19 01/26/19 20:45 20:45 WBC 7.3 RBC 5.42 Hgb 15.5 Hct 47.1 MCV 86.9 MCH 28.6 MCHC 32.9 RDW 14.6 Plt Count 173 Neut % (Auto) 74.6 Lymph % (Auto) 12.7 L [place] % (Auto) 9.7 Eos % (Auto) 2.3 Baso % (Auto) 0.7 Neut # (Auto) 5500 Lymph # (Auto) 900 L [place] # (Auto) 700 Eos # (Auto) 200 Baso # (Auto) 100 Sodium 136 L Potassium 3.7 Chloride 99 Carbon Dioxide 26 BUN 28 H Creatinine 1.00 Estimated GFR > 60.0 BUN/Creatinine Ratio 28.0 H Glucose 115 H Calcium 8.9 Total Bilirubin 0.7 AST 28 ALT 28 Alkaline Phosphatase 95 Total Creatine Kinase 57 CK-MB (CK-2) TNP CK-MB (CK-2) Rel Index TNP Troponin I 0.036 H B-Natriuretic Peptide < 100 Total Protein 7.5 Albumin 4.1 Globulin 3.4 Albumin/Globulin Ratio 1.2 Lipase 102 Assessment & Plan Assessment & Plan narrative: AFlutter w/ RVR, acute on chronic, present on admission, active... 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 Nelson Swain - Patient is not anti-coagulated, h/o of MILVIA closure, will be on VTE prophylaxis with heparin Type II TN, acute, present on admission, active... likely in the setting of increased oxygen demand vs. unstable angina vs. coronary spasm (having chest discomfort) - Troponin 0.036; sx of myocardial ischemia - dyspnea, diaphoresis, lightheadedness and chest discomfort; EKG not indicative of ischemia or pathological Q - Trend troponin Exertional dyspnea, acute, present on admission, active Worsening over the past 3 months, not associated with peripheral edema, PND, orthopnea. H/O valvular surgery. BNP < 100. - echo Hypovolemia, acute, present on admission, active - received 1L NS in ED, will monitor for now - am lab pending Valvular heart disease, s/p ablation, chronic, present on admission, active - echocardiogram to check for bowel function - obtain records from patient's hedge trimmer for additional details CAD h/o PCI x8 stents, chronic condition, present on admission, active... - continue risk factor modification with ASA and Plavix - not on a statin due to intolerance/allergy Dyslipidemia, chronic condition, present on admission, active - h/o statin intolerance due to allergy vs, myopathy, check FLP GERD without known esophagitis, chronic condition, present on admission, active - resume PT regimen of PPI and H2 kamini Patient has health directive. DPOA is his . Home medications reviewed and reconciled accordingly. VTE propylaxis w/ SQ heparin
[2019-01-27 06:02] LABS: BUN Creatinine Ratio 27.8 (6-22); Blood Urea Nitrogen 25 mg/dL (9-20); Calcium 8.3 mg/dL (8.4-10.2); Carbon Dioxide 26 mmol/L (22-32); Chloride 101 mmol/L (98-107); Estimated Glomerular Filt Rate > 60.0 mL/min (>60); Glucose 155 mg/dL (80-110); HEMOLYSIS < 15 (0-50); Magnesium 1.8 mg/dL (1.6-2.3); Potassium 3.9 mmol/L (3.4-5.1); Sodium 134 mmol/L (137-145)
[2019-01-27 06:13] LABS: Troponin I 0.027 ng/mL (0.01-0.034)
[2019-01-27] MEDS: SODIUM CHLORIDE 0.9% 1,000 ML 21 ML IV (06:34)
[2019-01-27 06:35] LABS: Thyroid Stimulating Hormone 1.18 uIU/mL (0.47-4.68)
--- NOTE | 2019-01-27 09:07 | CM.DANOTE ---
DCP: Case received, EMR reviewed and met with patient. Introduced self and role. Information regarding patient's baseline completed, and DCP template complete. Patient is a 73 year old male who admitted early this morning to the care of the hospitalist team. PCP: Dr. Maza. Payer: confirmed: Medicare/[facility]. Patient came to hospital via ambulance due to symptoms of dizziness secondary to constipation. Patient has cardiac history, and has had 8 stents put in. Confirmed with patient that his community outreach advocate is Dr. Swain. He is alert and oriented. He stated that he had been straining on the toilet trying to have a bowel movement, and became dizzy Patient is independent, and lives with his , Meron, here in [place]. P: DCP to continue to follow. He will be here for more cardiac testing, and should be able to go home when he is medically stable. Nkechi Marshall, RN/Senior Net Engineer
[2019-01-27] MEDS: METOPROLOL IR 50 MG TABLET PO ×3 (09:45→23:31)
[2019-01-27] MEDS: MAGNESIUM SULFATE 2 GM/50 ML PIGGYBACK IV (09:47)
[2019-01-27] MEDS: FUROSEMIDE 20 MG TABLET PO (09:48)
[2019-01-27] MEDS: ASPIRIN EC 81 MG TABLET PO (09:48)
[2019-01-27] MEDS: CLOPIDOGREL 75 MG TABLET PO (09:48)
[2019-01-27] MEDS: LORATADINE 10 MG TABLET PO (09:48)
[2019-01-27] MEDS: HEPARIN 5,000 UNIT/ML VIAL 5000 UNIT SUBCUT ×2 (09:48→22:32)
[2019-01-27] MEDS: DOCUSATE 100 MG CAPSULE PO (09:49)
[2019-01-27] MEDS: LOSARTAN 50 MG TABLET PO (09:49)
[2019-01-27] MEDS: POTASSIUM CHLORIDE 20 MEQ TAB PO (09:49)
--- NOTE | 2019-01-27 10:32 | PM.PN.1 ---
Subjective Date Patient Seen: 01/27/19 Exam Vital Signs (past 8 hours): - 01/27/19 23:12 01/28/19 03:24 Temperature 98.1 F 98.2 F Pulse Rate 143 H 73 Respiratory Rate 23 18 Blood Pressure 133/87 145/70 H Pulse Oximetry 96 99 Oxygen Delivery Method Room Air Oxygen Flow Rate 0 Objective Labs Result Diagrams: 01/26/19 20:45 01/27/19 05:45 Labs: Laboratory Results - last 24 hr 01/27/19 01/27/19 01/27/19 03:20 05:45 05:45 Sodium 134 L Potassium 3.9 Chloride 101 Carbon Dioxide 26 BUN 25 H Creatinine 0.90 Estimated GFR > 60.0 BUN/Creatinine Ratio 27.8 H Glucose 155 H Calcium 8.3 L Magnesium 1.8 Troponin I 0.027 TSH 1.18 Urine Color Urine Appearance Urine pH Ur Specific [place] Urine Protein Urine Glucose (UA) Urine Ketones Urine Occult Blood Urine Nitrate Urine Bilirubin Urine Urobilinogen Ur Leukocyte Esterase Urine RBC Urine WBC Ur Squamous Epith Cells Urine Bacteria Ur Culture Indicated? Nasal Screen MRSA (PCR) Negative for mrsa 01/27/19 12:17 Sodium Potassium Chloride Carbon Dioxide BUN Creatinine Estimated GFR BUN/Creatinine Ratio Glucose Calcium Magnesium Troponin I TSH Urine Color Yellow Urine Appearance Clear Urine pH 7.0 Ur Specific [place] 1.020 Urine Protein Negative Urine Glucose (UA) Negative Urine Ketones Negative Urine Occult Blood Trace-lysed Urine Nitrate Negative Urine Bilirubin Negative Urine Urobilinogen 1.0 Ur Leukocyte Esterase Negative Urine RBC None seen Urine WBC None seen Ur Squamous Epith Cells None seen Urine Bacteria None seen Ur Culture Indicated? Cult not indicated Nasal Screen MRSA (PCR) Assessment & Plan Assessment & Plan narrative: Brief Progress Note: Patient seen and examined. No change to physical exam. Continue admitting providers assessment and plan of care. Titrated off diltiazem gtt and transitioned to short acting metoprolol tartrate 50 mg every 6 hours and titrate as needed. Will plan to convert to long acting tomorrow. Quality VTE Deep Vein Thrombosis/Pulmonary Embolism Present on Admission: Yes
[2019-01-27 12:43] LABS: Bacteria Urine None Seen; RBC Urine None Seen (0-5/HPF); WBC Urine None Seen (0-5/HPF)
[2019-01-27 12:51] LABS: Appearance Urine UA CLEAR; Bilirubin Urine UA NEGATIVE (NEGATIVE); Color Urine UA YELLOW; Glucose Urine UA NEGATIVE (Negative); Ketones Urine UA NEGATIVE (NEGATIVE); Leukocyte Esterase Urine UA NEGATIVE (NEGATIVE); Nitrite Urine UA NEGATIVE (Negative); Occult Blood Urine UA TRACE-LYSED (Negative); Protein Urine UA NEGATIVE (Negative)
[2019-01-27 13:14] LABS: Culture Indicated Urine Cult Not Indicated; Squamous Epithelial Cell Urine None Seen (0-5/HPF)
--- NOTE | 2019-01-27 14:35 | PC.NURSE ---
Day Shift Note Patient in a flutter CVR throughout shift with rate in the 70-80 bpm range. Denies shortness of breath, denies pain. Diltiazem gtt infusing at 10 mg/hr at start of shift - titrated to off after PO metoprolol administered. Diltiazem gtt off at [address] Ferro notified at that time. Pt up SBA to bathroom, steady on feet. Does report mild dizziness when changing positions, BP WNL (see VS trends). Home med list and allergies reviewed with patient and updated. Call light within reach, using appropriately to make needs known. at bedside.
--- NOTE | 2019-01-27 17:33 | PC.NURSE ---
Addendum entered by Rhonda Rooney R.N. 01/27/19 20:49: Spoke to Dr. Ferro about tachycardia and received order for 2.5 mg IV metoprol now. HR down to 80s after administration. At bedtime, pt stood up to close privacy curtain and HR up to 140s. HR back down to 80s after 2 minutes at rest. Original Note: leonardo note Pt 's HR up to 143 when repositioning self in bed. After eating dinner, Pt's HR up to 150 while on BSC.
[2019-01-27] MEDS: METOPROLOL TARTRATE 5 MG/5 ML INJ 2.5 MG IV (18:15)
[2019-01-27] MEDS: SODIUM CHLORIDE 0.9% FLUSH 10 ML IV (22:33)
[2019-01-27] MEDS: TRAZODONE 50 MG TABLET 25 MG PO (23:55)
[2019-01-28] VITALS (8 sets, daily range): BP systolic 107–145; BP diastolic 51–90; PULSE 73–147; RESP 16–21; TEMP 36.2–37.2; O2SAT 93–99
[2019-01-28] MEDS: METOPROLOL IR 50 MG TABLET PO ×2 (06:04→12:18)
[2019-01-28] MEDS: FUROSEMIDE 20 MG TABLET PO (09:34)
[2019-01-28] MEDS: HEPARIN 5,000 UNIT/ML VIAL 5000 UNIT SUBCUT ×2 (09:34→20:36)
[2019-01-28] MEDS: ASPIRIN EC 81 MG TABLET PO (09:34)
[2019-01-28] MEDS: CLOPIDOGREL 75 MG TABLET PO (09:34)
[2019-01-28] MEDS: LOSARTAN 50 MG TABLET PO (09:35)
[2019-01-28] MEDS: LORATADINE 10 MG TABLET PO (09:35)
[2019-01-28] MEDS: POTASSIUM CHLORIDE 20 MEQ TAB PO (09:36)
[2019-01-28] MEDS: SODIUM CHLORIDE 0.9% FLUSH 10 ML IV ×2 (09:39→20:37)
[2019-01-28] MEDS: LORazepam 0.5 MG TABLET PO (09:47)
[2019-01-28] MEDS: ONDANSETRON 4 MG/2 ML INJ IV (11:19)
[2019-01-28 13:26] LABS: Blood Urea Nitrogen 24 mg/dL (9-20); Calcium 8.8 mg/dL (8.4-10.2); Carbon Dioxide 30 mmol/L (22-32); Chloride 99 mmol/L (98-107); Estimated Glomerular Filt Rate > 60.0 mL/min (>60); Glucose 95 mg/dL (80-110); HEMOLYSIS < 15 (0-50); Sodium 137 mmol/L (137-145)
[2019-01-28] MEDS: METOPROLOL TARTRATE 5 MG/5 ML INJ 2.5 MG IV ×2 (13:44→17:13)
--- NOTE | 2019-01-28 14:16 | PC.NURSE ---
Day Shift Note Pt continues in aflutter, increases to 140s with any activity including eating, repositioning in bed, and walking to bathroom. Sustaining at 140s 10-15 min at a time before eventually decreasing to 90-110s this afternoon. Pt symptomatic with diaphoresis and nausea. At 1345, 2.5 mg IV metoprolol administered per MD order, pt HR decreased to 110s. Denies chest pain. Call light within reach.
[2019-01-28] MEDS: METOPROLOL ER 50 MG TABLET 200 MG PO (17:12)
--- NOTE | 2019-01-28 18:37 | DI.CT.S_ITS ---
PROCEDURE: CT HEAD/BRAIN WO CON INDICATIONS: confusion, afib, concern for stroke TECHNIQUE: Noncontrast 4.5 mm thick angled axial sections acquired from the foramen magnum to the vertex, with coronal and sagittal reformats. For radiation dose reduction, the following was used: automated exposure control, adjustment of mA and/or kV according to patient size. COMPARISON: [facility], CT, HEAD WITHOUT CONTRAST, 09/12/2012, 15:07. FINDINGS: Image quality: Excellent. CSF spaces: Basal cisterns are patent. No extra-axial fluid collections. The ventricles are symmetric in size and shape. Brain: No intracranial bleeds or masses. There is cerebral volume loss for age, with resultant ventricular and sulcal prominence. There are periventricular and deep white matter chronic small vessel ischemic changes. There is intracranial internal carotid artery atherosclerosis. Skull and face: Calvarium and visualized facial bones appear intact, without suspicious lesions. Sinuses: Visualized sinuses and mastoids are clear. IMPRESSION: No acute intracranial findings. Findings likely associated with chronic microvascular ischemic change. Dictated by: Misty Joseph M.D. on 01/28/2019 at 19:41 Approved by: Misty Joseph M.D. on 01/28/2019 at 19:42
--- NOTE | 2019-01-28 18:44 | P.PN_ITS ---
Subjective Date Patient Seen: 01/28/19 Interval history: Car Workman is a 73-year-old with a past medical history significant for coronary artery disease status post stenting x8, aortic stenosis status post bioprosthetic aortic valve replacement, paroxysmal atrial fibrillation status post ablation, hypertension, hyperlipidemia, anxiety, and insomnia who presented with dizziness. Interval history: Patient started on short-acting metoprolol tartrate 50 mg every 6 hours with good control heart rate 70 to 80s over the course of the yesterday afternoon and evening. The patient is resting in bed comfortably. He is quite anxious and fixates on things. His is present in the room and seems to propagate his anxiety. The patient has had several instances where his heart rate shoots up and sust ains and the 120s. He has been given metoprolol 2.5 mg IV x2 (yesterday evening and today). He can feel his heart rate when he is in RVR and is symptomatic with nausea and diaphoresis. Have contacted his deburrer machine group and on-call deburrer machine at [facility] without response. He denies headache, shortness of breath, chest pain, abdominal pain, nausea, vomiting, fever, chills, dysuria, diarrhea or constipation. He is voiding and eliminating without difficulty. He is up ambulating without assistance. Exam Vital Signs (past 8 hours): - 01/28/19 12:00 01/28/19 16:40 01/28/19 17:12 Temperature 98.4 F 98.4 F Pulse Rate 109 H 147 H 146 H Respiratory Rate 18 18 Blood Pressure 114/57 L 130/90 130/90 Pulse Oximetry 93 94 Oxygen Delivery Method Room Air Oxygen Flow Rate 0 Narrative Exam Narrative: General: Elderly gentleman sitting in bed and in no acute distress, well-develo ped, well-nourished, significantly anxious and fixates on various topics, possible mild cognitive impairment and confusion. HEENT: Normocephalic, atraumatic. External ears without defect. Pupils equal, round, and reactive to light. Anicteric sclerae, moist conjunctivae, and no lid lag. Neck: Supple with full range of motion. No jugular venous distension. No bruits. No lymphadenopathy or thyromegaly. Cardiovascular: Irregularly irregular without murmurs, rubs, or gallops appreciated. Pulmonary: Clear to auscultation bilaterally without crackles, wheezes, or rhonchi. Normal respiratory effort with no use of accessory muscles. Abdomen: Soft, obese, bowel sounds present, nontender, nondistended. No hepatosplenomegaly or masses appreciated. Extremities: No clubbing, cyanosis, or edema. Skin: Normal temperature, turgor, and texture; no rash, ulcers, or subcutaneous nodules appreciated. Neurological: Cranial nerves grossly intact. Psychiatric: Significantly anxious mood. Perseveration and circumstantial thinking. Alert and oriented to person, place, and time. Objective Labs Result Diagrams: 01/30/19 04:43 01/30/19 04:43 Labs: Laboratory Results - last 24 hr 01/27/19 01/28/19 05:48 13:00 Sodium 137 Potassium 4.0 Chloride 99 Carbon Dioxide 30 BUN 24 H Creatinine 1.00 Estimated GFR > 60.0 BUN/Creatinine Ratio 24.0 H Glucose 95 Hemoglobin A1c 6.0 Calcium 8.8 Magnesium 2.0 Assessment & Plan Assessment & Plan narrative: Car Workman is a 73-year-old with a past medical history significant for coronary artery disease status post stenting x8, aortic stenosis status post bioprosthetic aortic valve replacement, paroxysmal atrial fibrillation status p ost ablation, hypertension, hyperlipidemia, anxiety, and insomnia who presented with dizziness. 1. Chronic atrial fibrillation/flutter with RVR, present on admission. Active. -Titrated off diltiazem gtt and transition to metoprolol tartrate 50 mg every 6 hours. -Echocardiogram demonstrated atrial fibrillation with heart rates between 45 and 77 bpm during the exam, normal left ventricle size with ejection fraction 60- 65%, severely dilated left atrium, prosthetic aortic valve is well-seated, mild mitral regurgitation, and RVSP 34mmHg. -TSH normal at 1.18. -Chest x-ray and UA negative for infectious process. -Patient is not anti-coagulated but on dual anti-platelet therapy. He has a hi story of left atrial appendage closure and bioprosthetic aortic valve replacement. Continue VTE prophylaxis with SubQ heparin. Consider NOAC or warfarin and discontinuation of aspirin. 2. Acute type II RI, present on admission. Resolved. -Secondary to demand ischemia from atrial fibrillation with RVR. -Initial troponin 0.036. Repeat within normal limits at 0.027. EKG not indicative of ischemia or pathological Q. -Patient initially dyspneic, diaphoretic, lightheaded with chest discomfort and resolved with rate control. 3. Exertional dyspnea, acute, present on admission. Stable. -Likely secondary to chronic atrial fibrillation versus deconditioning. -Patient presented with worsening exertional dyspnea over the past 3 months, not associated with peripheral edema, PND, orthopnea. History of valvular surgery. BNP < 100. -Echocardiogram ruled out CHF as above. 4. Acute hypovolemia. Present on admission. Resolved. -Resolved with 1L NS in ED. 5. Valvular heart disease status post ablation, chronic, present on admission. Stable. -Echocardiogram shows well-seated valve. -Obtained and reviewed records from Dr. Willett. 6. CAD status post cardiac stenting x 8, chronic, present on admission. Stable. -Continue risk factor modification with ASA and Plavix. -Not on a statin due to intolerance/allergy. 7. Dyslipidemia, chronic, present on admission. Stable. - h/o statin intolerance due to allergy vs, myopathy, check FLP 8. GERD without known esophagitis, chronic, present on admission. Stable. -Continue PPI and H2 kamini. Disposition: Patient likely to discharge home tomorrow if atrial fibrillation is rate controlled with intervention. Quality VTE Deep Vein Thrombosis/Pulmonary Embolism Present on Admission: Yes
[2019-01-28] MEDS: dilTIAZem 5 MG/ML SDV 10 MG IV (20:53)
--- NOTE | 2019-01-28 22:24 | PC.NURSE ---
Addendum entered by Rhonda Rooney R.N. 01/28/19 23:20: HR sustaining at rest rate 140s. Called Dr. Ferro to discuss. Pt still confused. Dr. Ferro to bedside to assess pt. IV diltiazem given. Head CT done.l Original Note: leonardo note pt napping until 16:15. Pt walked out of his room, dressed in his street clothes with hat and sunglasses on with telemetry leads hanging out bottom of shirt. Pt said he was going to look for his and kids and dog. Directed pt back to room. Heart monitor plugged back into monitor. HR 140s. Pt says he was a little woozy. Pt able to identify nurse by name. Pt says he is in hospital, says he hasn't seen his family in 3 days. Says he felt chained up like a dog with all the monitor wires. Pt refers to things that happened yesterday as having happened 2 days ago. Called Pt's to ask if she has ever noticed confusion episodes at home. reports a few occurences. coming to bedside.
[2019-01-29] VITALS (8 sets, daily range): BP systolic 110–140; BP diastolic 50–86; PULSE 74–98; RESP 18–24; TEMP 36.4–36.6; O2SAT 94–95
--- NOTE | 2019-01-29 05:52 | PC.NURSE ---
NOC Shift: Pt AAOX3 however displaying some forgetfulness and inability to understand situation even though he knows he is in the hospital. Has only slept a few hours through night, awake this AM obsessed with asking staff about his personal clothing, where is it etc. VSS, Afib CVR on tele w/intermittent HR increases above 100. Denies pain, discomfort. HL. Bed alarm on for safety.
[2019-01-29] MEDS: dilTIAZem CD 120 MG CAP PO (08:12)
--- NOTE | 2019-01-29 08:56 | PM.PN.1 ---
Subjective Date Patient Seen: 01/29/19 Interval history: Car Workman is a 73-year-old with a past medical history significant for coronary artery disease status post stenting x8, aortic stenosis status post bioprosthetic aortic valve replacement, paroxysmal atrial fibrillation status post ablation, hypertension, hyperlipidemia, anxiety, and insomnia who presented with dizziness. Interval history: Yesterday evening the patient had episode of confusion after a nap in which he got dressed and was walking out of the hospital. The patient was had no focal neurological deficits by my clinical exam. CT brain without contrast was pursued by [facility] which was negative for any acute intracranial abnormality and as anticipated demonstrated chronic microvascular ischemic changes with atrophy. The on-call pharmacometrician, Dr. Morel, from [facility] was contacted regarding management of his atrial fibrillation with RVR as rate continued to be persistently in the 130's. The pharmacometrician agreed with the plan in place and addition of diltiazem IV bolus as needed over the evening and to start long-acting diltiazem CD 120 mg the next morning. The patient is resting in bed comfortably. His heart rate overnight was well controlled with diltiazem IV bolus in addition to metoprolol succinate. Discussed case with his pharmacometrician early this morning Dr. Arevalo who agrees with above plan and also agreed with anticoagulation with NOAC or warfarin, stopping aspirin, and continuing plavix. He is quite fixated on his mentation and possible underlying dementia. Plan to have occupational therapy perform SLUMS. The patient's reports that he has been intermittently confused in the past and gave an example of an instance when he became confused while driving in an area that he is quite familiar. Discussed obstructive sleep apnea in which the patient has been diagnosed in the past but does not wear CPAP. Discussed echocardiogram findings that are concurrent with JULIA and risk of early onset dementia. The patient is already high risk for dementia due to his vascular disease. He continues to be quite anxious. He has not slept well during his hospitalization but better last night than the prior two nights. He is usually on Ambien which was not continued. He denies headache, shortness of breath, chest pain, abdominal pain, nausea, vomiting, fever, chills, dysuria, diarrhea or constipation. He is voiding and eliminating without difficulty. He is up ambulating without assistance. Exam Vital Signs (past 8 hours): - 01/30/19 04:47 01/30/19 07:45 Temperature 97.3 F L Pulse Rate 75 95 H Respiratory Rate 18 Blood Pressure 120/75 135/65 Pulse Oximetry 95 96 Oxygen Delivery Method Room Air Oxygen Flow Rate 0 Narrative Exam Narrative: General: Elderly gentleman sitting in bed and in no acute distress, well-developed, well-nourished, significantly anxious and fixates on various topics, probable mild cognitive impairment or early dementia. HEENT: Normocephalic, atraumatic. External ears without defect. Pupils equal, round, and reactive to light. Anicteric sclerae, moist conjunctivae, and no lid lag. Neck: Supple with full range of motion. No jugular venous distension. No bruits. No lymphadenopathy or thyromegaly. Cardiovascular: Irregularly irregular without murmurs, rubs, or gallops appreciated. Pulmonary: Clear to auscultation bilaterally without crackles, wheezes, or rhonchi. Normal respiratory effort with no use of accessory muscles. Abdomen: Soft, obese, bowel sounds present, nontender, nondistended. No hepatosplenomegaly or masses appreciated. Extremities: No clubbing, cyanosis, or edema. Skin: Normal temperature, turgor, and texture; no rash, ulcers, or subcutaneous nodules appreciated. Neurological: Cranial nerves grossly intact. Psychiatric: Significantly anxious mood. Perseveration and circumstantial thinking. Alert and oriented to person, place, and time. Probable mild cognitive impairment or early dementia. Objective Labs Result Diagrams: 01/30/19 04:43 01/30/19 04:43 Labs: Laboratory Results - last 24 hr 01/30/19 01/30/19 04:43 04:43 WBC 6.4 RBC 5.16 Hgb 15.2 Hct 44.7 MCV 86.5 MCH 29.4 MCHC 34.0 RDW 14.8 Plt Count 173 Neut % (Auto) 66.9 Lymph % (Auto) 18.3 L [place] % (Auto) 10.1 Eos % (Auto) 3.9 Baso % (Auto) 0.8 Neut # (Auto) 4300 Lymph # (Auto) 1200 [place] # (Auto) 600 Eos # (Auto) 300 Baso # (Auto) 100 Sodium 136 L Potassium 4.2 Chloride 99 Carbon Dioxide 30 BUN 28 H Creatinine 1.00 Estimated GFR > 60.0 BUN/Creatinine Ratio 28.0 H Glucose 108 Calcium 9.1 Magnesium 1.9 Total Bilirubin 0.8 AST 27 ALT 22 Alkaline Phosphatase 77 Total Protein 6.8 Albumin 3.6 Globulin 3.2 Albumin/Globulin Ratio 1.1 Assessment & Plan Assessment & Plan narrative: Car Workman is a 73-year-old with a past medical history significant for coronary artery disease status post stenting x8, aortic stenosis status post bioprosthetic aortic valve replacement, paroxysmal atrial fibrillation status post ablation, hypertension, hyperlipidemia, anxiety, and insomnia who presented with dizziness. 1. Chronic atrial fibrillation/flutter with RVR, present on admission. Controlled. -Titrated off diltiazem gtt. Continue metoprolol succinate 200 mg daily at bedtime and in addition started diltiazem CD 120 mg daily. -Echocardiogram demonstrated atrial fibrillation with heart rates between 45 and 77 bpm during the exam, normal left ventricle size with ejection fraction 60-65%, severely dilated left atrium, prosthetic aortic valve is well-seated, mild mitral regurgitation, and RVSP 34mmHg. -TSH normal at 1.18. -Chest x-ray and UA negative for infectious process. -Patient is not anti-coagulated but on dual anti-platelet therapy. He has a history of left atrial appendage closure and bioprosthetic aortic valve replacement. Discussed case with his pharmacometrician early this morning Dr. Arevalo who agrees with above plan and also agreed with anticoagulation with NOAC or warfarin, stopping aspirin, and continuing plavix. Continue VTE prophylaxis with SubQ heparin. Preauthorizing the various NOAC's and plan to discontinue aspirin once NOAC initiated. Patient declined warfarin. 2. Acute type II [place], present on admission. Resolved. -Secondary to demand ischemia from atrial fibrillation with RVR. -Initial troponin 0.036. Repeat within normal limits at 0.027. EKG not indicative of ischemia or pathological Q. -Patient initially dyspneic, diaphoretic, lightheaded with chest discomfort and resolved with rate control. 3. Exertional dyspnea, acute, present on admission. Stable. -Likely secondary to chronic atrial fibrillation versus deconditioning. -Patient presented with worsening exertional dyspnea over the past 3 months, not associated with peripheral edema, PND, orthopnea. History of valvular surgery. BNP < 100. -Echocardiogram ruled out CHF as above. 4. Acute hypovolemia. Present on admission. Resolved. -Resolved with 1L NS in ED. 5. Valvular heart disease status post ablation, chronic, present on admission. Stable. -Echocardiogram shows well-seated valve. -Obtained and reviewed records from Dr. Willett. 6. CAD status post cardiac stenting x 8, chronic, present on admission. Stable. -Continue risk factor modification with NOAC once preauthorized and continue plavix. Stop aspirin. Patient declined warfarin. -Not on a statin due to intolerance/allergy but patient would like to reconsider and will work with his pharmacometrician or PCP. 7. Dyslipidemia, chronic, present on admission. Presumed stable. -Not on a statin due to intolerance/allergy but patient would like to reconsider and will work with his pharmacometrician or PCP. 8. GERD without known esophagitis, chronic, present on admission. Stable. -Continue PPI and H2 kamini. Disposition: Patient likely to discharge home tomorrow if atrial fibrillation is rate controlled with intervention. Quality VTE Deep Vein Thrombosis/Pulmonary Embolism Present on Admission: Yes
[2019-01-29] MEDS: ASPIRIN EC 81 MG TABLET PO (09:26)
[2019-01-29] MEDS: CLOPIDOGREL 75 MG TABLET PO (09:26)
[2019-01-29] MEDS: HEPARIN 5,000 UNIT/ML VIAL 5000 UNIT SUBCUT ×2 (09:26→20:20)
[2019-01-29] MEDS: LOSARTAN 50 MG TABLET PO (09:27)
[2019-01-29] MEDS: SODIUM CHLORIDE 0.9% FLUSH 10 ML IV ×2 (09:27→20:21)
[2019-01-29] MEDS: LORATADINE 10 MG TABLET PO (09:27)
--- NOTE | 2019-01-29 11:52 | OT.IP.TRT ---
Current Diagnoses Unspecified atrial flutter (01/27/19) Occupational Therapy Treatment Note M2 OT-IP Current Condition Start: 01/29/19 11:24 Freq: Status: Active Protocol: Document 01/29/19 11:24 [facility] (Rec: 01/29/19 11:52 [facility] [id number]) Occupational Therapy Current Condition Current Condition Evaluation Date 01/29/19 Treatment Diagnosis dizziness, A-flutter with RVR Diagnosis Onset Date 01/27/19 Weight Bearing Status Weight Bearing Status Weight Bear as Tolerated M3 OT- IP Subjective and Pain Start: 01/29/19 11:24 Freq: Status: Active Protocol: Document 01/29/19 11:24 [facility] (Rec: 01/29/19 11:52 [facility] [id number]) OT- Subjective Occupational Therapy Visit Type Type Initial Evaluation Visit Start Time 10:15 Visit Stop Time 11:10 Total Visit Minutes 55 Occupational Therapy Visit Comments Patient Comments Pt agreeable to do cognitive assessment requested by physician. Patient/Caregiver Goals Pt wanting to go home. OT Pain Assessment Pain When Pain Assessed At Rest Pain Present Pain Present Denied Pain M4 OT- IP ADL's Start: 01/29/19 11:24 Freq: Status: Active Protocol: Document 01/29/19 11:24 [facility] (Rec: 01/29/19 11:52 [facility] [id number]) OT ADL-Toileting Comments OT Toileting Comments Per nurse pt is SBA and no device and able to walk into the bathroom. Pt occasionally place hand on objects for balance. M5 OT- IP IADL's Start: 01/29/19 11:24 Freq: Status: Active Protocol: Document 01/29/19 11:24 [facility] (Rec: 01/29/19 11:52 [facility] [id number]) OT-Instrumental Activities of Daily Living Home Safety Awareness Ability to Problem Solve Emergency Able to Problem Solve Situations Home Safety Comments Pt accurate for home safety questions, however at times has word finding difficulties and needing cues to focus or to help to narrow down the correct response. Medication Management Medication Management No Deficits Identified Money Management Money Management Caregiver Provides Assistance Meal Preparation Meal Preparation Caregiver Provides Assist Driving Driving Comments Recommend at this time that his to drive. M6 OT- IP Functional Cognition Start: 01/29/19 11:24 Freq: Status: Active Protocol: Document 01/29/19 11:24 [facility] (Rec: 01/29/19 11:52 [facility] [id number]) Cognitive Factors Limiting Selfcare Function Cognitive Ability Level of Alertness Alert Patient Orientation Name Year Day of Week Place Situation Attention Span Ability Capable of Focused Attention Capable of Sustained Attention Unable to Sustain Attention Ability to Follow Commands Able to Follow One Step Commands Memory Description Short Term Impaired Fpc Intact Safety Awareness Underestimates Need for Assistance Problem Solving Ability Needs Assist to Identify Solutions Executive Function Ability Unable to Switch Focus Unable to Filter Distractions Unable to Remember Details Abstract Thinking Ability Unable to Understand Generalizations Unable to Draw Logical Conclusions Cognitive Tests SLUMS Pt scored 23/30 normal score is 27/30. Pt having most difficulty with short term memory items, main issues appears that pt have difficulty to focus, is inattentive and easily distracted. Cognitive Comments Cognitive Assessment Comments Pt scored 173sec. and needing two cues to remember directions therefore implies that pt has impairments with visual attention and task switching therefore suggesting that pt should not drive at this time. A score of greater than 180 sec per [employer] implies person greater risk of getting into a car accident. OT- Vision and Hearing OT- Hearing Assessment OT- Hearing Assessment WFL OT- Vision Assessment Visual Acuity Glasses For Reading Visual Attentiveness WFL Occular Pursuits Impaired Horizontal Visual Reynolds WFL Vision Assessment Comments Saccadic movements horizontally. M7 OT- IP Mobility and Balance Start: 01/29/19 11:24 Freq: Status: Active Protocol: Document 01/29/19 11:24 [facility] (Rec: 01/29/19 11:52 [facility] [id number]) OT- Bed Mobility Assessment Rolling Type of Rolling Roll to Right Supine to Sit Supine to Sit Assist Standby Assistance Head of Bed Elevated Bedrails Sit to Supine Sit to Supine Assist Standby Assistance Head of Bed Elevated Bedrails OT-Transfer Assessment Comments Mobility Comments Pt able to get to edge of the bed with SBA and not wanting to get up as feeling dizzy. In addition would rather want to shower until here with his clothing. OT- Gait Assessment Comments Gait Ability Comments Not able to assess as pt wanted to stay in bed. OT- Balance Assessment Sitting Balance and Reactions Static Sitting Balance Ability Normal M8 OT- IP Objective Assessments Start: 01/29/19 11:24 Freq: Status: Active Protocol: Document 01/29/19 11:24 [facility] (Rec: 01/29/19 11:52 [facility] [id number]) OT Gross Range of Motion Upper Extremity Range of Motion Assessment Within Functional Limits M9 OT- IP Assessment and Plan Start: 01/29/19 11:24 Freq: Status: Active Protocol: Document 01/29/19 11:24 [facility] (Rec: 01/29/19 11:52 [facility] [id number]) OT Summary Assessment and Plan Potential Rehabilitation Potential Good Analytic Complexity at Evaluation Low Summary OT Impairments Balance Functional Cognition Progress Towards Goals Slow Progress due to Medical Issues Assessment Summary Pt came is due to dizziness while trying to use the toilet while straining at home. Pt head x-ray showed microvascular ischemic changes . Pt noted to have mild cognitive impairments from assessments of SLUM and [place] [employer] and would benefit from having assist from especially from his from medications and driving needs. Pt's already assist with money management needs. Pt states in the process of going to see PT for balance needs, pt states had had PT in the past for vertigo needs. Therefore recommend when medically stable home with and outpt PT. Goals Grooming Goal Independent Dressing Goal Independent Toileting Goal Independent Bathing Goal Independent Toilet Transfer Goal Independent Shower Transfer Goal Independent Patient/Caregiver Education Goal Caregiver Independent Assisting Patient Days to Meet Goals 3 Frequency of Treatment Frequency Of Treatment Once a Day Treatment Plan OT Treatment Plan ADL Training Functional Cognition Training Functional Mobility Patient/Family Education Discharge Planning Other Treatment Recommendations and Next Shower, caregiver training Treatment Focus Discharge Recommendations OT Discharge Recommendations Home with Assistance Outpatient PT
[2019-01-29] MEDS: METOPROLOL ER 50 MG TABLET 200 MG PO (20:20)
[2019-01-29] MEDS: MELATONIN 3 MG TABLET 6 MG PO (20:20)
[2019-01-29] MEDS: DOCUSATE 100 MG CAPSULE PO (20:53)
--- NOTE | 2019-01-29 21:30 | PC.NURSE ---
Evening Shift Note: Pt called me into the room, stated that he felt dizzy and clammy and had nausea. Pt states this has happened after taking higher doses of metoprolol, as he did tonight and last night. Pt's skin was moist and flushed. Pt's BP 111/68, HR 80s, a-flutter; BG 103, temperature 97.8 Pt denies CP/chest pressure or heaviness. Denies SOB. Pt's HOB lowered and a cool cloth placed on his neck for comfort. FILM LIBRARIAN Familia Doe notified of pt's current condition, no new orders received at this time. Will continue to monitor, notify MD with changes.
[2019-01-30 00:31] VITALS: BP 131/80; PULSE 95; RESP 20; TEMP 36.4; O2SAT 94
[2019-01-30 04:47] VITALS: BP 120/75; PULSE 75; RESP 18; TEMP 36.3; O2SAT 95
[2019-01-30 06:02] LABS: Add Manual Diff / Slide Review NO; Alanine Aminotransferase 22 IU/L (21-72); Albumin 3.6 g/dL (3.5-5.0); Albumin Globulin Ratio 1.1 (1.0-2.8); Alkaline Phosphatase 77 U/L (38-126); Aspartate Aminotransferase 27 IU/L (17-59); Basophils Absolute Auto 100 /uL (0-100); Basophils Percent Auto 0.8 % (0-2); Bilirubin Total 0.8 mg/dL (0.2-1.3); Blood Urea Nitrogen 28 mg/dL (9-20); Calcium 9.1 mg/dL (8.4-10.2); Carbon Dioxide 30 mmol/L (22-32); Chloride 99 mmol/L (98-107); Eosinophils Absolute Auto 300 /uL (0-450); Eosinophils Percent Auto 3.9 % (2-4); Estimated Glomerular Filt Rate > 60.0 mL/min (>60); Globulin 3.2 g/dL (1.7-4.1); Glucose 108 mg/dL (80-110); HEMOLYSIS < 15 (0-50); Hematocrit 44.7 % (41-53); Hemoglobin 15.2 g/dL (13.5-17.5); Lymphocytes Absolute Auto 1200 /uL (1100-4500); Lymphocytes Percent Auto 18.3 % (25-40); Magnesium 1.9 mg/dL (1.6-2.3); Mean Corpuscular Hemoglobin 29.4 PG (26-34); Mean Corpuscular Volume 86.5 fL (80-100); Monocytes Absolute Auto 600 /uL (0-900); Monocytes Percent Auto 10.1 % (3-14); Neutrophils Absolute Auto 4300 /uL (1500-7000); Neutrophils Percent Auto 66.9 % (50-75); Platelet Count 173 X10^3/uL (150-400); Potassium 4.2 mmol/L (3.4-5.1); Red Blood Cell Count 5.16 X10^6/uL (4.5-5.9); Red Cell Distribution Width 14.8 % (11.6-14.8); Sodium 136 mmol/L (137-145); Total Protein 6.8 g/dL (6.3-8.2); White Blood Cell Count 6.4 X10^3/uL (4.5-11.0)
[2019-01-30 07:45] VITALS: BP 135/65; PULSE 95; TEMP 36.8; O2SAT 96
--- NOTE | 2019-01-30 08:56 | P.PN_ITS ---
Subjective Date Patient Seen: 01/29/19 Interval history: Car Workman is a 73-year-old with a past medical history significant for coronary artery disease status post stenting x8, aortic stenosis status post bioprosthetic aortic valve replacement, paroxysmal atrial fibrillation status post ablation, hypertension, hyperlipidemia, anxiety, and insomnia who presented with dizziness. Interval history: Yesterday evening the patient had episode of confusion after a nap in which he got dressed and was walking out of the hospital. The patient was had no focal neurological deficits by my clinical exam. CT brain without contrast was pursued by [facility] which was negative for any acute intracranial abnormality and as anticipated demonstrated chronic microvascular ischemic changes with atrophy. The on-call scale tank operator, Dr. Morel, from [facility] was contacted regarding management of his atrial fibrillation with RVR as rate continued to be persistently in the 130's. The scale tank operator agreed with the plan in place and addition of diltiazem IV bolus as needed over the evening and to start long-acting diltiazem CD 120 mg the next morning. The patient is resting in bed comfortably. His heart rate overnight was well controlled with diltiazem IV bolus in addition to metoprolol succinate. Discussed case with his scale tank operator early this morning Dr. Arevalo who agrees with above plan and also agreed with anticoagulation with NOAC or warfarin, stopping aspirin, and continuing plavix. He is quite fixated on his mentation and possible underlying dementia. Plan to have occupational therapy perform SLUMS. The patient's reports that he has been intermittently confused in the past and gave an example of an instance when he became confused while driving in an area that he is quite familiar. Discussed obstructive sleep apnea in which the patient has been diagnosed in the past but does not wear CPAP. Discussed echocardiogram findings that are concurrent with JULIA and risk of early onset dementia. The patient is already high risk for dementia due to his vascular disease. He continues to be quite anxious. He has not slept well during his hospitalization but better last night than the prior two nights. He is usually on Ambien which was not continued. He denies headache, shortness of breath, chest pain, abdominal pain, nausea, vomiting, fever, chills, dysuria, diarrhea or constipation. He is voiding and eliminating without difficulty. He is up ambulating without assistance. Exam Vital Signs (past 8 hours): - 01/30/19 04:47 01/30/19 07:45 Temperature 97.3 F L Pulse Rate 75 95 H Respiratory Rate 18 Blood Pressure 120/75 135/65 Pulse Oximetry 95 96 Oxygen Delivery Method Room Air Oxygen Flow Rate 0 Narrative Exam Narrative: General: Elderly gentleman sitting in bed and in no acute distress, well- developed, well-nourished, significantly anxious and fixates on various topics, probable mild cognitive impairment or early dementia. HEENT: Normocephalic, atraumatic. External ears without defect. Pupils equal, round, and reactive to light. Anicteric sclerae, moist conjunctivae, and no lid lag. Neck: Supple with full range of motion. No jugular venous distension. No bruits. No lymphadenopathy or thyromegaly. Cardiovascular: Irregularly irregular without murmurs, rubs, or gallops appreciated. Pulmonary: Clear to auscultation bilaterally without crackles, wheezes, or rhonchi. Normal respiratory effort with no use of accessory muscles. Abdomen: Soft, obese, bowel sounds present, nontender, nondistended. No hepatosplenomegaly or masses appreciated. Extremities: No clubbing, cyanosis, or edema. Skin: Normal temperature, turgor, and texture; no rash, ulcers, or subcutaneous nodules appreciated. Neurological: Cranial nerves grossly intact. Psychiatric: Significantly anxious mood. Perseveration and circumstantial thinking. Alert and oriented to person, place, and time. Probable mild cognitive impairment or early dementia. Objective Labs Result Diagrams: 01/30/19 04:43 01/30/19 04:43 Labs: Laboratory Results - last 24 hr 01/30/19 01/30/19 04:43 04:43 WBC 6.4 RBC 5.16 Hgb 15.2 Hct 44.7 MCV 86.5 MCH 29.4 MCHC 34.0 RDW 14.8 Plt Count 173 Neut % (Auto) 66.9 Lymph % (Auto) 18.3 L [place] % (Auto) 10.1 Eos % (Auto) 3.9 Baso % (Auto) 0.8 Neut # (Auto) 4300 Lymph # (Auto) 1200 [place] # (Auto) 600 Eos # (Auto) 300 Baso # (Auto) 100 Sodium 136 L Potassium 4.2 Chloride 99 Carbon Dioxide 30 BUN 28 H Creatinine 1.00 Estimated GFR > 60.0 BUN/Creatinine Ratio 28.0 H Glucose 108 Calcium 9.1 Magnesium 1.9 Total Bilirubin 0.8 AST 27 ALT 22 Alkaline Phosphatase 77 Total Protein 6.8 Albumin 3.6 Globulin 3.2 Albumin/Globulin Ratio 1.1 Assessment & Plan Assessment & Plan narrative: Car Workman is a 73-year-old with a past medical history significant for coronary artery disease status post stenting x8, aortic stenosis status post bioprosthetic aortic valve replacement, paroxysmal atrial fibrillation status post ablation, hypertension, hyperlipidemia, anxiety, and insomnia who presented with dizziness. 1. Chronic atrial fibrillation/flutter with RVR, present on admission. Controlled. -Titrated off diltiazem gtt. Continue metoprolol succinate 200 mg daily at bedtime and in addition started diltiazem CD 120 mg daily. -Echocardiogram demonstrated atrial fibrillation with heart rates between 45 and 77 bpm during the exam, normal left ventricle size with ejection fraction 60- 65%, severely dilated left atrium, prosthetic aortic valve is well-seated, mild mitral regurgitation, and RVSP 34mmHg. -TSH normal at 1.18. -Chest x-ray and UA negative for infectious process. -Patient is not anti-coagulated but on dual anti-platelet therapy. He has a history of left atrial appendage closure and bioprosthetic aortic valve replacement. Discussed case with his scale tank operator early this morning Dr. Arevalo who agrees with above plan and also agreed with anticoagulation with NOAC or warfarin, stopping aspirin, and continuing plavix. Continue VTE prophylaxis with SubQ heparin. Preauthorizing the various NOAC's and plan to discontinue aspirin once NOAC initiated. Patient declined warfarin. 2. Acute type II [place], present on admission. Resolved. -Secondary to demand ischemia from atrial fibrillation with RVR. -Initial troponin 0.036. Repeat within normal limits at 0.027. EKG not indicative of ischemia or pathological Q. -Patient initially dyspneic, diaphoretic, lightheaded with chest discomfort and resolved with rate control. 3. Exertional dyspnea, acute, present on admission. Stable. -Likely secondary to chronic atrial fibrillation versus deconditioning. -Patient presented with worsening exertional dyspnea over the past 3 months, not associated with peripheral edema, PND, orthopnea. History of valvular surgery. BNP < 100. -Echocardiogram ruled out CHF as above. 4. Acute hypovolemia. Present on admission. Resolved. -Resolved with 1L NS in ED. 5. Valvular heart disease status post ablation, chronic, present on admission. Stable. -Echocardiogram shows well-seated valve. -Obtained and reviewed records from Dr. Willett. 6. CAD status post cardiac stenting x 8, chronic, present on admission. Stable. -Continue risk factor modification with NOAC once preauthorized and continue plavix. Stop aspirin. Patient declined warfarin. -Not on a statin due to intolerance/allergy but patient would like to reconsider and will work with his scale tank operator or PCP. 7. Dyslipidemia, chronic, present on admission. Presumed stable. -Not on a statin due to intolerance/allergy but patient would like to reconsider and will work with his scale tank operator or PCP. 8. GERD without known esophagitis, chronic, present on admission. Stable. -Continue PPI and H2 kamini. Disposition: Patient likely to discharge home tomorrow if atrial fibrillation is rate controlled with intervention. Quality VTE Deep Vein Thrombosis/Pulmonary Embolism Present on Admission: Yes
[2019-01-30] MEDS: ASPIRIN EC 81 MG TABLET PO (09:15)
[2019-01-30] MEDS: dilTIAZem CD 120 MG CAP PO (09:15)
[2019-01-30] MEDS: FUROSEMIDE 20 MG TABLET PO (09:15)
[2019-01-30] MEDS: HEPARIN 5,000 UNIT/ML VIAL 5000 UNIT SUBCUT (09:15)
[2019-01-30] MEDS: CLOPIDOGREL 75 MG TABLET PO (09:15)
[2019-01-30] MEDS: POTASSIUM CHLORIDE 20 MEQ TAB PO (09:16)
[2019-01-30] MEDS: LOSARTAN 50 MG TABLET 25 MG PO (09:16)
[2019-01-30] MEDS: LORATADINE 10 MG TABLET PO (09:16)
[2019-01-30] MEDS: SODIUM CHLORIDE 0.9% FLUSH 10 ML IV (09:21)
--- NOTE | 2019-01-30 10:42 | PM.DS.1 ---
History of Present Illness Date Patient Seen: 01/27/19 Chief complaint: Constipated, Dizzy Narrative: Written by Angeles PEREZ: Patient was transferred via EMS from his home and triaged in the ED 01/26/2019 @ 20:10. On initial assessment was found to be tachycardic with an atrial flutter on EKG. Associated symptoms included shortness of breath, diaphoresis, and lightheadedness. Denies experiencing chest pain or palpitations at time of the event. Patient reports not feeling well since . Since that time has been experiencing epigastric discomfort that he attributes to symptoms of dyspepsia / GERD. Day prior to ED presentation has been having intermittent left chest discomfort. There was no radiation to the shoulder, extremities, neck, or jaw. He reports having previous symptoms of GERD with diffuse chest discomfort in it times radiation to his extremities. Describes chest discomfort as sharp and magnitude as 3-4/10, denies pressure-like sensation. Chest discomfort noted to be intermittent in duration. At that time fairly asymptomatic. Overnight notes having less than restful sleep with multiple periods of wakefulness overnight and urgency to drink cold water, which is unusual for the patient. This morning was feeling dizzy, however did not check his blood pressure or heart rate. Later in the day patient was watching his grandchildren, he got up to use the restroom, while walking across the room felt lightheaded, short of breath, and diaphoretic. [place] eminent loss of consciousness. He called his to summon EMS. Patient did not have a syncopal event or loss of consciousness. Upon contact with EMS patient was found to have elevated heart rate, consequently he was brought to the ED for further evaluation. Initial EKG showed atrial flutter w/rapid ventricular rate. In ED was treated with 10 mg bolus of IV diltiazem x2, oral metoprolol, and a liter of NS bolus. Intervention was partially effective. Patient was unable to sustain a controlled ventricular rate requiring initiation of the Cardizem drip. Patient is being admitted for AFIB / RVR. Patient has a complex cardiac medical history for which she is unable to provide significant details. The following history obtained. PMH of CAD (stenting x8, last 5 yrs ago), HTN, PAF (s/p ablation w/ MILVIA closure), valvular surgery (h/o ablation), dyslipidemia (h/o statin intolerance), JULIA (not on CPAP), GERD, and BPH. No prior history of an IL, CHF, CVA/TIA, or thrombosis. Patient is not anti-coagulated. According to his account, it seems that he may have had left atrial appendage closure at time of an ablation for his underlying AFib, 3 years ago by report. This in patient's other history would need to be verified with his protective services case worker. He seen Nelson Swain in [facility]. His PCP is Dr. Maza. ED presentation, work-up VS 136/90 HR 149 RR 23 SpO2 98% (room air) WBC 7.3 Hgb 15.5 Hct 47.1 Plt 173 Na 136 K 3.6 Cl 99 CO2 26 Ca 8.9 Glu 115 BUN 28 Cr 1 Trop 0.036 BNP < 100 EKG #1, 01/26/2019... atrial flutter and intermittent atrial tachyarrhythmia w/ RVR, non-specific ST-T abnormality Discharge Providers Date of admission: 01/27/19 03:12 Discharge Date: 01/30/19 Primary care physician: Jim Rosado MD Consults: 01/29/19 08:15 Consult to Occupational Therapy Evaluate & Treat Comment: Please perform SLUMS Physician Instructions: Evaluate and treat Discharge provider: Jackie Ferro DO Summary Discharge Diagnosis: 1. Chronic atrial fibrillation/flutter with RVR, present on admission. Controlled. 2. Acute type II IL, present on admission. Resolved. 3. Acute on chronic cognitive impairment, possibly present on admission. Acute portion resolved. 4. Exertional dyspnea, acute, present on admission. Stable. 5. Acute hypovolemia. Present on admission. Resolved. 6. Valvular heart disease status post ablation, chronic, present on admission. Stable. 7. CAD status post cardiac stenting x 8, chronic, present on admission. Stable. 8. Dyslipidemia, chronic, present on admission. Presumed stable. 9. GERD, chronic, present on admission. Stable. Hospital Course: Car Workman is a 73-year-old with a past medical history significant for coronary artery disease status post stenting x8, aortic stenosis status post bioprosthetic aortic valve replacement, paroxysmal atrial fibrillation status post ablation, hypertension, hyperlipidemia, anxiety, and insomnia who presented with dizziness. 1. Chronic atrial fibrillation/flutter with RVR, present on admission. Controlled. -Titrated off diltiazem gtt. Continue metoprolol succinate 200 mg daily at bedtime and in addition started diltiazem CD 120 mg daily. -Echocardiogram demonstrated atrial fibrillation with heart rates between 45 and 77 bpm during the exam, normal left ventricle size with ejection fraction 60-65%, severely dilated left atrium, prosthetic aortic valve is well-seated, mild mitral regurgitation, and RVSP 34mmHg. -TSH normal at 1.18. -Chest x-ray and UA negative for infectious process. -Patient is not anti-coagulated but on dual anti-platelet therapy. He has a history of left atrial appendage closure and bioprosthetic aortic valve replacement. Discussed case with his protective services case worker, Dr. Contreras, who agrees with above plan and also agreed with anticoagulation with NOAC or warfarin, stopping aspirin, and continuing plavix. Continued VTE prophylaxis with SubQ heparin. Started Xarelto 20 mg daily and continue plavix 75 mg daily. Discontinued aspirin. Patient declined warfarin. 2. Acute type II IL, present on admission. Resolved. -Secondary to demand ischemia from atrial fibrillation with RVR. -Initial troponin 0.036. Repeat within normal limits at 0.027. EKG not indicative of ischemia or pathological Q. -Patient initially dyspneic, diaphoretic, lightheaded with chest discomfort and resolved with rate control. 3. Acute on chronic cognitive impairment, likely present on admission. Acute portion resolved. -Patient has history of confusion events per . Recently got lost while driving in a familiar area. -Acute episode of confusion propagated by insomnia (ambien discontinued recently outpatient) and hospitalization. See progress note 01/29 and event note 01/28. No focal neurological deficits. -SLUMS preformed by occupational therapy scored 23/30 consistent with cognitive impairment vs. early dementia for which the patient is at high risk due to ASCVD. OT recommended no driving based cognitive assessment. -CT brain did not demonstrate any acute intracranial abnormalities. Patient did have chronic microvascular ischemic changes as anticipated and concordiant with early vascular dementia. 4. Exertional dyspnea, acute, present on admission. Stable. -Likely secondary to chronic atrial fibrillation versus deconditioning. -Patient presented with worsening exertional dyspnea over the past 3 months, not associated with peripheral edema, PND, orthopnea. History of valvular surgery. BNP < 100. -Echocardiogram ruled out CHF as above. 5. Acute hypovolemia. Present on admission. Resolved. -Resolved with 1L NS in ED. 6. Valvular heart disease status post ablation, chronic, present on admission. Stable. -Echocardiogram shows well-seated valve. -Obtained and reviewed records from protective services case worker, Dr. Contreras. 7. CAD status post cardiac stenting x 8, chronic, present on admission. Stable. -Continued risk factor modification and started Xarelto 20 mg daily and continued plavix 75 mg daily. Stopped aspirin. Patient declined warfarin. The patient's protective services case worker Dr. Contreras agrees with plan. -Not on a statin due to intolerance/allergy but patient would like to reconsider and will work with his protective services case worker or PCP outpatient. 8. Dyslipidemia, chronic, present on admission. Presumed stable. -Not on a statin due to intolerance/allergy but patient would like to reconsider and will work with his protective services case worker or PCP outpatient. 9. GERD, chronic, present on admission. Stable. -Continued PPI and H2 kamini. Status at Discharge Functional status at discharge: independent ambulation Exam Vital Signs (past 8 hours): - 01/30/19 04:47 01/30/19 07:45 Temperature 97.3 F L Pulse Rate 75 95 H Respiratory Rate 18 Blood Pressure 120/75 135/65 Pulse Oximetry 95 96 Oxygen Delivery Method Room Air Oxygen Flow Rate 0 Narrative Exam Narrative: General: Elderly gentleman sitting in bed and in no acute distress, well-developed, well-nourished, significantly anxious and fixates on various topics, probable mild cognitive impairment or early dementia. HEENT: Normocephalic, atraumatic. External ears without defect. Pupils equal, round, and reactive to light. Anicteric sclerae, moist conjunctivae, and no lid lag. Neck: Supple with full range of motion. No jugular venous distension. No bruits. No lymphadenopathy or thyromegaly. Cardiovascular: Irregularly irregular without murmurs, rubs, or gallops appreciated. Pulmonary: Clear to auscultation bilaterally without crackles, wheezes, or rhonchi. Normal respiratory effort with no use of accessory muscles. Abdomen: Soft, obese, bowel sounds present, nontender, nondistended. No hepatosplenomegaly or masses appreciated. Extremities: No clubbing, cyanosis, or edema. Skin: Normal temperature, turgor, and texture; no rash, ulcers, or subcutaneous nodules appreciated. Neurological: Cranial nerves grossly intact. Psychiatric: Significantly anxious mood. Perseveration and circumstantial thinking. Alert and oriented to person, place, and time. Probable mild cognitive impairment or early dementia. Objective Labs Result Diagrams: 01/30/19 04:43 01/30/19 04:43 Labs: Laboratory Results - last 24 hr 01/30/19 01/30/19 04:43 04:43 WBC 6.4 RBC 5.16 Hgb 15.2 Hct 44.7 MCV 86.5 MCH 29.4 MCHC 34.0 RDW 14.8 Plt Count 173 Neut % (Auto) 66.9 Lymph % (Auto) 18.3 L Cannon % (Auto) 10.1 Eos % (Auto) 3.9 Baso % (Auto) 0.8 Neut # (Auto) 4300 Lymph # (Auto) 1200 Cannon # (Auto) 600 Eos # (Auto) 300 Baso # (Auto) 100 Sodium 136 L Potassium 4.2 Chloride 99 Carbon Dioxide 30 BUN 28 H Creatinine 1.00 Estimated GFR > 60.0 BUN/Creatinine Ratio 28.0 H Glucose 108 Calcium 9.1 Magnesium 1.9 Total Bilirubin 0.8 AST 27 ALT 22 Alkaline Phosphatase 77 Total Protein 6.8 Albumin 3.6 Globulin 3.2 Albumin/Globulin Ratio 1.1 Discharge Plan Discharge Plan Patient Disposition: Home Discharge comment: You are being discharged home. Please follow-up with your PCP, Dr. Maza, tomorrow at your scheduled appointment to discuss your hospitalization. Please schedule a follow-up appointment with your protective services case worker Dr. Contreras. You have been prescribed diltiazem CD 120 mg daily in the morning and metoprolol succinate 200 mg daily at bedtime (to be taken 12 hours apart). You have been started on Eliquis 5 mg twice daily (a new blood thinner that does not require monitoring) in addition to Plavix 75 mg daily. Aspirin was discontinued. Please implement lifestyle modification including: diet and exercise as discussed. Your CT scan and cognitive evaluation demonstrated mild cognitive impairment/early dementia. It is recommend by Occupational therapy that you not drive. You need to get an updated sleep study and treat your sleep apnea as this can lead to early onset dementia, cardiovascular disease including heart attack and stroke, and uncontrolled hypertension. Recommend cognitive behavioral therapy to treat your anxiety. You may continue to discuss your medications with your PCP and which would be appropriate to discontinue going forward. Discharge Med Rec/Prescriptions Prescriptions: New metoprolol succinate 50 mg Tablet Extended Release 24 Hr 200 mg PO 2100 Qty: 120 RF: 0 diltiazem HCl 120 mg Capsule,Extended Release 24hr 120 mg PO DAILY Qty: 30 RF: 0 Eliquis 5 mg tablet 5 mg PO BID Qty: 60 RF: 0 Continued loratadine [Claritin] 10 MG tablet 10 mg PO QDAY Qty: 0 RF: 0 multivitamin Tablet 1 tab PO DAILY RF: 0 clopidogrel [Plavix] 75 mg Tablet 75 mg PO DAILY RF: 0 furosemide [Lasix] 20 mg Tablet 20 mg PO DAILY RF: 0 fluticasone propionate [Flonase Allergy Relief] 50 mcg/actuation [place],Suspension 1 spray INTRANASAL DAILY PRN (Reason: Allergy Symptoms) RF: 0 cholecalciferol (vitamin D3) [Vitamin D3] 2,000 unit Capsule 2,000 unit PO DAILY RF: 0 potassium chloride 20 mEq Tablet Extended Release 20 meq PO DAILY RF: 0 lorazepam [Ativan] 1 MG tablet 0.5 mg PO QDAY PRN (Reason: Anxiety) RF: 0 Slow-Mag 1 tab tablet 1 tab PO DAILY RF: 0 ranitidine HCl [Zantac] 150 mg Tablet 150 mg PO BEDTIME RF: 0 docusate sodium 100 mg Capsule 100 mg PO BEDTIME RF: 0 Changed losartan 50 mg Tablet 25 mg PO DAILY Qty: 30 RF: 0 Discontinued aspirin 81 mg Tablet,Delayed Release (Dr/Ec) 81 mg PO DAILY RF: 0 metoprolol succinate 50 mg Tablet Extended Release 24 Hr 50 mg PO BEDTIME RF: 0 Follow up/Referrals: Car Maza MD [Physician] - 01/31/19 1:30 pm (appt:01/31 @ 1:[address] maza @ [facility] [phone] ) Nelson Swain MD [Non-Staff] - 03/21/19 10:45 am Provider Discharge Instructions Diet: Low-fat, Low-sodium and Low-cholesterol Activity: Activity as tolerated Visit Report/Discharge Packet Instructions: The Mediterranean Diet and Good Health, Cognitive-Behavioral Therapy (CBT), Vascular Dementia, Mild Cognitive Impairment, DI for Atrial Fibrillation, Apixaban, Metoprolol (By mouth), Diltiazem (By mouth) Discharge Data Primary Care Provider: Jim Rosado Attending Provider: Angeles Pederson Admit Date/Time: 01/27/19 03:12 Discharges patient from system. Discharge Date/Time: 01/30/19 13:50 Quality VTE Deep Vein Thrombosis/Pulmonary Embolism Present on Admission: Yes
--- NOTE | 2019-01-30 11:17 | OT.IP.TRT ---
Current Diagnoses Unspecified atrial flutter (01/27/19) Occupational Therapy Treatment Note M2 OT-IP Current Condition Start: 01/29/19 11:24 Freq: Status: Active Protocol: Document 01/29/19 11:24 [facility] (Rec: 01/29/19 11:52 [facility] [id number]) Occupational Therapy Current Condition Current Condition Evaluation Date 01/29/19 Treatment Diagnosis dizziness, A-flutter with RVR Diagnosis Onset Date 01/27/19 Weight Bearing Status Weight Bearing Status Weight Bear as Tolerated M3 OT- IP Subjective and Pain Start: 01/29/19 11:24 Freq: Status: Active Protocol: Document 01/30/19 11:11 [facility] (Rec: 01/30/19 11:16 [facility] [id number]) OT- Subjective Occupational Therapy Visit Type Type Treatment Note Visit Start Time 11:00 Visit Stop Time 11:10 Total Visit Minutes 10 Occupational Therapy Visit Comments Patient Comments Pt not wanting to shower as going home today and also not wanting to reassess for [place] Making B or any other cognitive assessment, I am afraid that since I have not been sleeping that I will do poorly and do not want to try at this time. M4 OT- IP ADL's Start: 01/29/19 11:24 Freq: Status: Active Protocol: Document 01/29/19 11:24 [facility] (Rec: 01/29/19 11:52 [facility] [id number]) OT ADL-Toileting Comments OT Toileting Comments Per nurse pt is SBA and able to walk into the bathroom. M5 OT- IP IADL's Start: 01/29/19 11:24 Freq: Status: Active Protocol: Document 01/29/19 11:24 [facility] (Rec: 01/29/19 11:52 [facility] [id number]) OT-Instrumental Activities of Daily Living Home Safety Awareness Ability to Problem Solve Emergency Able to Problem Solve Situations Home Safety Comments Pt accurate for home safety questions, however at times has word finding difficulties and needing cues to focus or to help to narrow down the correct response. Medication Management Medication Management No Deficits Identified Money Management Money Management Caregiver Provides Assistance Meal Preparation Meal Preparation Caregiver Provides Assist Driving Driving Comments Recommend at this time that his to drive. M6 OT- IP Functional Cognition Start: 01/29/19 11:24 Freq: Status: Active Protocol: Document 01/30/19 11:11 [facility] (Rec: 01/30/19 11:16 [facility] [id number]) Cognitive Factors Limiting Selfcare Function Cognitive Ability Level of Alertness Alert Attention Span Ability Capable of Focused Attention Capable of Sustained Attention Unable to Sustain Attention Ability to Follow Commands Able to Follow One Step Commands Memory Description Short Term Impaired Mysql Dba Intact Safety Awareness Underestimates Need for Assistance Problem Solving Ability Needs Assist to Identify Solutions Executive Function Ability Unable to Switch Focus Unable to Filter Distractions Unable to Remember Details Abstract Thinking Ability Unable to Understand Generalizations Unable to Draw Logical Conclusions Cognitive Comments Cognitive Assessment Comments Pt not wanting to repeat testing and insists that he is a safe drive for short distances. However able to talk to pt to realize that if he is not feeling well or not sleeping well that he should not be driving anyways. After further discussion, pt states has recently been concerned and trying to avoid driving his grand kids around. Pt now appears to agree that he will just let his drive for now. Pt states plans on following recommendation from Dr. Ferro to do sleep study and also plans to see a neurologist. M7 OT- IP Mobility and Balance Start: 01/29/19 11:24 Freq: Status: Active Protocol: Document 01/29/19 11:24 [facility] (Rec: 01/29/19 11:52 [facility] [id number]) OT- Bed Mobility Assessment Rolling Type of Rolling Roll to Right Supine to Sit Supine to Sit Assist Standby Assistance Head of Bed Elevated Bedrails Sit to Supine Sit to Supine Assist Standby Assistance Head of Bed Elevated Bedrails OT-Transfer Assessment Comments Mobility Comments Pt able to get to edge of the bed with SBA and not wanting to get up as feeling dizzy. In addition would rather want to shower until here with his clothing. OT- Gait Assessment Comments Gait Ability Comments Not able to assess as pt wanted to stay in bed. OT- Balance Assessment Sitting Balance and Reactions Static Sitting Balance Ability Normal M8 OT- IP Objective Assessments Start: 01/29/19 11:24 Freq: Status: Active Protocol: Document 01/29/19 11:24 [facility] (Rec: 01/29/19 11:52 [facility] [id number]) OT Gross Range of Motion Upper Extremity Range of Motion Assessment Within Functional Limits M9 OT- IP Assessment and Plan Start: 01/29/19 11:24 Freq: Status: Active Protocol: Document 01/30/19 11:11 [facility] (Rec: 01/30/19 11:17 [facility] [id number]) OT Summary Assessment and Plan Potential Rehabilitation Potential Good Analytic Complexity at Evaluation Low Summary OT Impairments Functional Cognition Assessment Summary Pt main barrier is functinal cognition, at this time suggest that pt not drive adn that to assist and supervison for medications, and IADl needs.
--- NOTE | 2019-01-30 12:02 | CM.DPC ---
DCP: continued: case received and discussed in Team Rounds. Dr. Ferro stated she was able to discuss pt's case with his fuel operator and planned to d/c pt to home today. She is working with [facility] Roberta on new medication options and will decide after sees what cost to pt might be. Roberta confirms she is in process of this, that pt is very eager to leave and she will update Dr. Ferro with info as soon as it is obtained. She will document her process and outcome. P: home with clinic followup when all is completed.
--- NOTE | 2019-01-30 12:24 | CM.DPC ---
DCP Cont: Faxed Eliquis, Pradaxa and Xarelto prescriptions to [facility] and [facility] for coverage reviews/test claims. Received a call back from Fernando at [facility] stating the patient still owes $175 on his deductible and that he has a $75 copay for the Eliquis and the Pradaxa. The Xarelto is not covered by his insurance until he has tried and failed one of the other therapies. The member was given all of this information and he is going to call his pharmacist for some info on which one is better to take. Dr. Ferro will be calling in whichever med she chooses. [facility] has all of the prescriptions now on file. Roberta Dunbar, [facility] Education Coordinator
--- NOTE | 2019-01-30 13:51 | PC.NURSE ---
Pt d/c'ing home per MD order. D/c packet, medication list, and educational material printed. Performed d/c teaching with patient and . Reviewed disease process, medications (dose, route, timing, side effects, monitoring parameters), diet, activity, follow up appts, stroke education. Pt and verbalize understanding of all and report having no questions at this time. states she canceled f/u appt with PCP. Instructed that Dr. Ferro recommends pt f/u with PCP and that appt was made by [facility]. states she will call and reschedule the appt today. Pt transferred from bed to w/c independently with steady gait in no distress and was escorted to POV driven by with all belongings.
--- NOTE | 2019-02-10 05:02 | P.DS_ITS ---
History of Present Illness Date Patient Seen: 01/27/19 Chief complaint: Constipated, Dizzy Narrative: Written by Angeles PEREZ: Patient was transferred via EMS from his home and triaged in the ED 01/26/2019 @ 20:10. On initial assessment was found to be tachycardic with an atrial flutter on EKG. Associated symptoms included shortness of breath, diaphoresis, and lightheadedness. Denies experiencing chest pain or palpitations at time of the event. Patient reports not feeling well since . Since that time has been experiencing epigastric discomfort that he attributes to symptoms of dyspepsia / GERD. Day prior to ED presentation has been having intermittent left chest discomfort. There was no radiation to the shoulder, extremities, neck, or jaw. He reports having previous symptoms of GERD with diffuse chest discomfort in it times radiation to his extremities. Describes chest discomfort as sharp and magnitude as 3-4/10, denies pressure-like sensation. Chest discomfort noted to be intermittent in duration. At that time fairly asymptomatic. Overnight notes having less than restful sleep with multiple periods of wakefulness overnight and urgency to drink cold water, which is unusual for the patient. This morning was feeling dizzy, however did not check his blood pressure or heart rate. Later in the day patient was watching his grandchildren, he got up to use the restroom, while walking across the room felt lightheaded, short of breath, and diaphoretic. [place] eminent loss of consciousness. He called his to summon EMS. Patient did not have a syncopal event or loss of consciousness. Upon contact with EMS patient was found to have elevated heart rate, consequently he was brought to the ED for further evaluation. Initial EKG showed atrial flutter w/rapid ventricular rate. In ED was treated with 10 mg bolus of IV diltiazem x2, oral metoprolol, and a liter of NS bolus. Intervention was partially effective. Patient was unable to sustain a co ntrolled ventricular rate requiring initiation of the Cardizem drip. Patient is being admitted for AFIB / RVR. Patient has a complex cardiac medical history for which she is unable to provide significant details. The following history obtained. PMH of CAD (stenting x8, last 5 yrs ago), HTN, PAF (s/p ablation w/ MILVIA closure), valvular surgery (h/o ablation), dyslipidemia (h/o statin intolerance), JULIA (not on CPAP), GERD, and BPH. No prior history of an CT, CHF, CVA/TIA, or thrombosis. Patient is not anti-coagulated. According to his account, it seems that he may have had left atrial appendage closure at time of an ablation for his underlying AFib, 3 years ago by report. This in patient's other history would need to be verified with his skip pitman. He seen Nelson Swain in [facility]. His PCP is Dr. Maza. ED presentation, work-up VS 136/90 HR 149 RR 23 SpO2 98% (room air) WBC 7.3 Hgb 15.5 Hct 47.1 Plt 173 Na 136 K 3.6 Cl 99 CO2 26 Ca 8.9 Glu 115 BUN 28 Cr 1 Trop 0.036 BNP < 100 EKG #1, 01/26/2019... atrial flutter and intermittent atrial tachyarrhythmia w/ RVR, non-specific ST-T abnormality Discharge Providers Date of admission: 01/27/19 03:12 Discharge Date: 01/30/19 Primary care physician: Jim Rosado MD Consults: 01/29/19 08:15 Consult to Occupational Therapy Evaluate & Treat Comment: Please perform SLUMS Physician Instructions: Evaluate and treat Discharge provider: Jackie Ferro DO Summary Discharge Diagnosis: 1. Chronic atrial fibrillation/flutter with RVR, present on admission. Controlled. 2. Acute type II CT, present on admission. Resolved. 3. Acute on chronic cognitive impairment, possibly present on admission. Acute portion resolved. 4. Exertional dyspnea, acute, present on admission. Stable. 5. Acute hypovolemia. Present on admission. Resolved. 6. Valvular heart disease status post ablation, chronic, present on admission. Stable. 7. CAD status post cardiac stenting x 8, chronic, present on admission. Stable. 8. Dyslipidemia, chronic, present on admission. Presumed stable. 9. GERD, chronic, present on admission. Stable. Hospital Course: Car Workman is a 73-year-old with a past medical history significant for coronary artery disease status post stenting x8, aortic stenosis status post bioprosthetic aortic valve replacement, paroxysmal atrial fibrillation status post ablation, hypertension, hyperlipidemia, anxiety, and insomnia who presented with dizziness. 1. Chronic atrial fibrillation/flutter with RVR, present on admission. Controlled. -Titrated off diltiazem gtt. Continue metoprolol succinate 200 mg daily at bedtime and in addition started diltiazem CD 120 mg daily. -Echocardiogram demonstrated atrial fibrillation with heart rates between 45 and 77 bpm during the exam, normal left ventricle size with ejection fraction 60- 65%, severely dilated left atrium, prosthetic aortic valve is well-seated, mild mitral regurgitation, and RVSP 34mmHg. -TSH normal at 1.18. -Chest x-ray and UA negative for infectious process. -Patient is not anti-coagulated but on dual anti-platelet therapy. He has a history of left atrial appendage closure and bioprosthetic aortic valve replacement. Discussed case with his skip pitman, Dr. Contreras, who agrees with above plan and also agreed with anticoagulation with NOAC or warfarin, stopping aspirin, and continuing plavix. Continued VTE prophylaxis with SubQ heparin. Started Xarelto 20 mg daily and continue plavix 75 mg daily. Discontinued aspirin. Patient declined warfarin. 2. Acute type II CT, present on admission. Resolved. -Secondary to demand ischemia from atrial fibrillation with RVR. -Initial troponin 0.036. Repeat within normal limits at 0.027. EKG not indicative of ischemia or pathological Q. -Patient initially dyspneic, diaphoretic, lightheaded with chest discomfort and resolved with rate control. 3. Acute on chronic cognitive impairment, likely present on admission. Acute portion resolved. -Patient has history of confusion events per . Recently got lost while driving in a familiar area. -Acute episode of confusion propagated by insomnia (ambien discontinued recently outpatient) and hospitalization. See progress note 01/29 and event note 01/28. No focal neurological deficits. -SLUMS preformed by occupational therapy scored 23/30 consistent with cognitive impairment vs. early dementia for which the patient is at high risk due to ASCVD. OT recommended no driving based cognitive assessment. -CT brain did not demonstrate any acute intracranial abnormalities. Patient did have chronic microvascular ischemic changes as anticipated and concordiant with early vascular dementia. 4. Exertional dyspnea, acute, present on admission. Stable. -Likely secondary to chronic atrial fibrillation versus deconditioning. -Patient presented with worsening exertional dyspnea over the past 3 months, not associated with peripheral edema, PND, orthopnea. History of valvular surgery. BNP < 100. -Echocardiogram ruled out CHF as above. 5. Acute hypovolemia. Present on admission. Resolved. -Resolved with 1L NS in ED. 6. Valvular heart disease status post ablation, chronic, present on admission. Stable. -Echocardiogram shows well-seated valve. -Obtained and reviewed records from skip pitman, Dr. Contreras. 7. CAD status post cardiac stenting x 8, chronic, present on admission. Stable. -Continued risk factor modification and started Xarelto 20 mg daily and continued plavix 75 mg daily. Stopped aspirin. Patient declined warfarin. The patient's skip pitman Dr. Contreras agrees with plan. -Not on a statin due to intolerance/allergy but patient would like to reconsider and will work with his skip pitman or PCP outpatient. 8. Dyslipidemia, chronic, present on admission. Presumed stable. -Not on a statin due to intolerance/allergy but patient would like to reconsider and will work with his skip pitman or PCP outpatient. 9. GERD, chronic, present on admission. Stable. -Continued PPI and H2 kamini. Status at Discharge Functional status at discharge: independent ambulation Exam Vital Signs (past 8 hours): - 01/30/19 04:47 01/30/19 07:45 Temperature 97.3 F L Pulse Rate 75 95 H Respiratory Rate 18 Blood Pressure 120/75 135/65 Pulse Oximetry 95 96 Oxygen Delivery Method Room Air Oxygen Flow Rate 0 Narrative Exam Narrative: General: Elderly gentleman sitting in bed and in no acute distress, well- developed, well-nourished, significantly anxious and fixates on various topics, probable mild cognitive impairment or early dementia. HEENT: Normocephalic, atraumatic. External ears without defect. Pupils equal, round, and reactive to light. Anicteric sclerae, moist conjunctivae, and no lid lag. Neck: Supple with full range of motion. No jugular venous distension. No bruits. No lymphadenopathy or thyromegaly. Cardiovascular: Irregularly irregular without murmurs, rubs, or gallops appreciated. Pulmonary: Clear to auscultation bilaterally without crackles, wheezes, or rhonchi. Normal respiratory effort with no use of accessory muscles. Abdomen: Soft, obese, bowel sounds present, nontender, nondistended. No hepatosplenomegaly or masses appreciated. Extremities: No clubbing, cyanosis, or edema. Skin: Normal temperature, turgor, and texture; no rash, ulcers, or subcutaneous nodules appreciated. Neurological: Cranial nerves grossly intact. Psychiatric: Significantly anxious mood. Perseveration and circumstantial thinking. Alert and oriented to person, place, and time. Probable mild cognitive impairment or early dementia. Objective Labs Result Diagrams: 01/30/19 04:43 01/30/19 04:43 Labs: Laboratory Results - last 24 hr 01/30/19 01/30/19 04:43 04:43 WBC 6.4 RBC 5.16 Hgb 15.2 Hct 44.7 MCV 86.5 MCH 29.4 MCHC 34.0 RDW 14.8 Plt Count 173 Neut % (Auto) 66.9 Lymph % (Auto) 18.[address] % (Auto) 10.1 Eos % (Auto) 3.9 Baso % (Auto) 0.8 Neut # (Auto) 4300 Lymph # (Auto) 1200 [place] # (Auto) 600 Eos # (Auto) 300 Baso # (Auto) 100 Sodium 136 L Potassium 4.2 Chloride 99 Carbon Dioxide 30 BUN 28 H Creatinine 1.00 Estimated GFR > 60.0 BUN/Creatinine Ratio 28.0 H Glucose 108 Calcium 9.1 Magnesium 1.9 Total Bilirubin 0.8 AST 27 ALT 22 Alkaline Phosphatase 77 Total Protein 6.8 Albumin 3.6 Globulin 3.2 Albumin/Globulin Ratio 1.1 Discharge Plan Discharge Plan Patient Disposition: Home Discharge comment: You are being discharged home. Please follow-up with your PCP, Dr. Maza, tomorrow at your scheduled appointment to discuss your hospitalization. Please schedule a follow-up appointment with your skip pitman Dr. Contreras. You have been prescribed diltiazem CD 120 mg daily in the morning and metoprolol succinate 200 mg daily at bedtime (to be taken 12 hours apart). You have been started on Eliquis 5 mg twice daily (a new blood thinner that does not require monitoring) in addition to Plavix 75 mg daily. Aspirin was discontinued. Please implement lifestyle modification including: diet and exercise as discussed. Your CT scan and cognitive evaluation demonstrated mild cognitive impairment/early dementia. It is recommend by Occupational therapy that you not drive. You need to get an updated sleep study and treat your sleep apnea as this can lead to early onset dementia, cardiovascular disease including heart attack and stroke, and uncontrolled hypertension. Recommend cognitive behavioral therapy to treat your anxiety. You may continue to discuss your medications with your PCP and which would be appropriate to discontinue going forward. Discharge Med Rec/Prescriptions Prescriptions: New metoprolol succinate 50 mg Tablet Extended Release 24 Hr 200 mg PO 2100 Qty: 120 RF: 0 diltiazem HCl 120 mg Capsule,Extended Release 24hr 120 mg PO DAILY Qty: 30 RF: 0 Eliquis 5 mg tablet 5 mg PO BID Qty: 60 RF: 0 Continued loratadine [Claritin] 10 MG tablet 10 mg PO QDAY Qty: 0 RF: 0 multivitamin Tablet 1 tab PO DAILY RF: 0 clopidogrel [Plavix] 75 mg Tablet 75 mg PO DAILY RF: 0 furosemide [Lasix] 20 mg Tablet 20 mg PO DAILY RF: 0 fluticasone propionate [Flonase Allergy Relief] 50 mcg/actuation [place],Suspension 1 spray INTRANASAL DAILY PRN (Reason: Allergy Symptoms) RF: 0 cholecalciferol (vitamin D3) [Vitamin D3] 2,000 unit Capsule 2,000 unit PO DAILY RF: 0 potassium chloride 20 mEq Tablet Extended Release 20 meq PO DAILY RF: 0 lorazepam [Ativan] 1 MG tablet 0.5 mg PO QDAY PRN (Reason: Anxiety) RF: 0 Slow-Mag 1 tab tablet 1 tab PO DAILY RF: 0 ranitidine HCl [Zantac] 150 mg Tablet 150 mg PO BEDTIME RF: 0 docusate sodium 100 mg Capsule 100 mg PO BEDTIME RF: 0 Changed losartan 50 mg Tablet 25 mg PO DAILY Qty: 30 RF: 0 Discontinued aspirin 81 mg Tablet,Delayed Release (Dr/Ec) 81 mg PO DAILY RF: 0 metoprolol succinate 50 mg Tablet Extended Release 24 Hr 50 mg PO BEDTIME RF: 0 Follow up/Referrals: Car Maza MD [Physician] - 01/31/19 1:30 pm (appt:01/31 @ 1:[address] maza @ [facility] [phone] ) Nelson Swain MD [Non-Staff] - 03/21/19 10:45 am Provider Discharge Instructions Diet: Low-fat, Low-sodium and Low-cholesterol Activity: Activity as tolerated Visit Report/Discharge Packet Instructions: The Mediterranean Diet and Good Health, Cognitive-Behavioral Therapy (CBT), Vascular Dementia, Mild Cognitive Impairment, DI for Atrial Fibrillation, Apixaban, Metoprolol (By mouth), Diltiazem (By mouth) Discharge Data Primary Care Provider: Jim Rosado Attending Provider: Angeles Pederson Admit Date/Time: 01/27/19 03:12 Discharges patient from system. Discharge Date/Time: 01/30/19 13:50 Quality VTE Deep Vein Thrombosis/Pulmonary Embolism Present on Admission: Yes
== END 2019-01-30 13:50 | disposition home or self-care (01) | DRG 282 ==
LOC: ED 01-27 02:46 → ICU 01-27 07:56
PROVIDERS: Internal Medicine; Admitting Provider Nurse Practitioner Gerontology; Emergency Provider Emergency Medicine; PCP Internal Medicine; Visit Provider Nurse Practitioner Gerontology
DX: I48.2 Chronic atrial fibrillation (principal); I21.A1 Myocardial infarction type 2; I48.92 Unspecified atrial flutter; R06.00 Dyspnea, unspecified; I25.10 Atherosclerotic heart disease of native coronary artery without angina pectoris; I10 Essential (primary) hypertension; E78.5 Hyperlipidemia, unspecified; K21.9 Gastro-esophageal reflux disease without esophagitis; N40.0 Benign prostatic hyperplasia without lower urinary tract symptoms; E86.1 Hypovolemia; G47.33 Obstructive sleep apnea (adult) (pediatric); Z95.2 Presence of prosthetic heart valve; G31.84 Mild cognitive impairment of uncertain or unknown etiology; G47.00 Insomnia, unspecified
CPT/HCPCS: 36415; 70450; 74022; 80048; 80053; 81001; 82550; 83036; 83690; 83735; 83880; 84443; 84484; 85025; 87797; 93005; 93306; 96361; 96365; 96375; 96376; 97127; 97165; 99285; 99291; 99292; J1644; J2405

== ENCOUNTER → 2019-08-28 15:51 | Outpatient (CLI) | payer MEDICARE, OTHER, SELFPAY ==
[2019-01-27 03:23] VITALS: BMI 36.6
[2019-08-28 18:18] LABS: Aspartate Aminotransferase 27 IU/L (17-59); Blood Urea Nitrogen 24 mg/dL (9-20); Calcium 9.1 mg/dL (8.4-10.2); Carbon Dioxide 30 mmol/L (22-32); Chloride 99 mmol/L (98-107); Cholesterol 217 mg/dL (140-199); Estimated Glomerular Filt Rate > 60.0 mL/min (>60); Glucose 101 mg/dL (80-110); HDL Cholesterol 41 mg/dL (40-60); HEMOLYSIS < 15 (0-50); LDL Cholesterol Calculated 153 mg/dL (<100); Potassium 4.3 mmol/L (3.4-5.1); Sodium 137 mmol/L (137-145); Triglycerides 114 mg/dL (35-150)
[2019-08-28 18:50] LABS: Prostate Specific Antigen 1.07 ng/mL (0.10-4.00)
== END ==
PROVIDERS: PCP Internal Medicine; Visit Provider Internal Medicine
DX: I10 Essential (primary) hypertension (principal); E78.2 Mixed hyperlipidemia; N40.0 Benign prostatic hyperplasia without lower urinary tract symptoms
CPT/HCPCS: 36415; 80048; 80061; 84153; 84450

== ENCOUNTER → 2020-04-27 15:08 | Outpatient (ROUT) | payer MEDICARE, OTHER, SELFPAY ==
[2019-01-27 03:23] VITALS: BMI 36.6
[2020-04-27 15:44] LABS: Hemoglobin A1C% w Est Avg Glu 6.4 % (4.0-6.0)
[2020-04-27 15:46] LABS: Aspartate Aminotransferase 31 IU/L (17-59); BUN Creatinine Ratio 19.8 (6-22); Blood Urea Nitrogen 19 mg/dL (9-20); Calcium 9.3 mg/dL (8.4-10.2); Carbon Dioxide 34 mmol/L (22-32); Chloride 99 mmol/L (98-107); Cholesterol 178 mg/dL (140-199); Estimated Glomerular Filt Rate > 60.0 mL/min (>60); Glucose 104 mg/dL (80-110); HDL Cholesterol 44 mg/dL (40-60); HEMOLYSIS < 15 (0-50); LDL Cholesterol Calculated 113 mg/dL (<100); Potassium 4.1 mmol/L (3.4-5.1); Sodium 137 mmol/L (137-145); Triglycerides 107 mg/dL (35-150)
== END ==
PROVIDERS: PCP Internal Medicine; Visit Provider Internal Medicine
DX: I10 Essential (primary) hypertension (principal); E11.9 Type 2 diabetes mellitus without complications
CPT/HCPCS: 80048; 80061; 83036; 84450

== ENCOUNTER → 2020-10-20 13:25 | Outpatient (CLI) | payer MEDICARE, OTHER, SELFPAY ==
[2019-01-27 03:23] VITALS: BMI 36.6
[2020-10-20] MEDS: COVID-19 VACC #1, MRNA(MOD) 100 MCG/0.5 ML VIAL IM (13:32)
== END ==
PROVIDERS: PCP Internal Medicine; Visit Provider Internal Medicine
DX: Z23 Encounter for immunization (principal)
CPT/HCPCS: 0011A; 91301

== ENCOUNTER → 2020-11-16 13:44 | Outpatient (CLI) | payer MEDICARE, OTHER, SELFPAY ==
[2019-01-27 03:23] VITALS: BMI 36.6
[2020-11-16] MEDS: COVID-19 VACC #2, MRNA(MOD) 100 MCG/0.5 ML VIAL IM (13:53)
== END ==
PROVIDERS: PCP Internal Medicine; Visit Provider Internal Medicine
DX: Z23 Encounter for immunization (principal)
CPT/HCPCS: 0012A; 91301

== ENCOUNTER → 2021-01-26 19:13 | Outpatient (ROUT) | payer MEDICARE, OTHER, SELFPAY ==
[2019-01-27 03:23] VITALS: BMI 36.6
[2021-01-26 19:23] LABS: Add Manual Diff / Slide Review NO; Basophils Absolute Auto 0 /uL (0-100); Basophils Percent Auto 0.6 % (0-2); Eosinophils Absolute Auto 300 /uL (0-450); Eosinophils Percent Auto 5.8 % (2-4); Hematocrit 38.2 % (41-53); Hemoglobin 12.6 g/dL (13.5-17.5); Lymphocytes Absolute Auto 1000 /uL (1100-4500); Lymphocytes Percent Auto 16.5 % (25-40); Mean Corpuscular HGB Conc 33.1 % (30-36); Mean Corpuscular Hemoglobin 26.7 PG (26-34); Mean Corpuscular Volume 80.9 fL (80-100); Monocytes Absolute Auto 600 /uL (0-900); Monocytes Percent Auto 10.6 % (3-14); Neutrophils Absolute Auto 3800 /uL (1500-7000); Neutrophils Percent Auto 66.5 % (50-75); Platelet Count 192 X10^3/uL (150-400); Red Blood Cell Count 4.72 X10^6/uL (4.5-5.9); Red Cell Distribution Width 15.4 % (11.6-14.8); White Blood Cell Count 5.8 X10^3/uL (4.5-11.0)
[2021-01-26 19:32] LABS: Alanine Aminotransferase 24 IU/L (<50); Albumin 3.7 g/dL (3.5-5.0); Albumin Globulin Ratio 1.2 (1.0-2.8); Alkaline Phosphatase 91 U/L (38-126); Aspartate Aminotransferase 32 IU/L (17-59); BUN Creatinine Ratio 21.6 (6-22); Bilirubin Total 0.5 mg/dL (0.2-1.3); Blood Urea Nitrogen 22 mg/dL (9-20); Calcium 9.1 mg/dL (8.4-10.2); Carbon Dioxide 31 mmol/L (22-32); Chloride 101 mmol/L (98-107); Cholesterol 195 mg/dL (140-199); Estimated Glomerular Filt Rate > 60.0 mL/min (>60); Globulin 3.1 g/dL (1.7-4.1); Glucose 105 mg/dL (80-110); HDL Cholesterol 48 mg/dL (40-60); HEMOLYSIS < 15 (0-50); LDL Cholesterol Calculated 127 mg/dL (<100); Potassium 4.1 mmol/L (3.4-5.1); Sodium 138 mmol/L (137-145); Total Protein 6.8 g/dL (6.3-8.2); Triglycerides 98 mg/dL (35-150)
[2021-01-26 20:00] LABS: TSH w/ Reflex to FT4 2.12 uIU/mL (0.47-4.68)
== END ==
PROVIDERS: PCP Internal Medicine; Visit Provider Internal Medicine
DX: I48.0 Paroxysmal atrial fibrillation (principal); E78.2 Mixed hyperlipidemia
CPT/HCPCS: 80053; 80061; 84443; 85025

== ENCOUNTER → 2021-02-16 17:00 | Outpatient (CLI) | payer MEDICARE, OTHER, SELFPAY ==
[2019-01-27 03:23] VITALS: BMI 36.6
--- NOTE | 2021-02-16 17:04 | DI.RAD.S_ITS ---
PROCEDURE: XR FOOT LT MIN 3V INDICATIONS: CONTUSION OF LEFT FOOT, INITIAL ENCOUNTER TECHNIQUE: 3 views of the foot were acquired. COMPARISON: None. FINDINGS: Bones: No fracture. 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 Chronic os peroneum. There is chronic plantar calcaneal spurring. Soft tissues: No tibiotalar joint effusion. Achilles tendon appears normal. IMPRESSION: Chronic degenerative changes otherwise unremarkable examination as above. If the patient's pain or other symptoms persist, consider further evaluation with MRI Dictated by: Andres Mack M.D. on 02/17/2021 at 10:48 Approved by: Andres Mack M.D. on 02/17/2021 at 10:50
== END ==
PROVIDERS: PCP Internal Medicine; Referring Provider Internal Medicine; Visit Provider Internal Medicine
DX: S90.32XA Contusion of left foot, initial encounter (principal)
CPT/HCPCS: 73630

== ENCOUNTER → 2021-02-25 19:34 | Outpatient (CLI) | payer MEDICARE, OTHER, SELFPAY ==
[2019-01-27 03:23] VITALS: BMI 36.6
--- NOTE | 2021-02-25 19:36 | DI.MRI.S_ITS ---
PROCEDURE: MRFOOT LT WO CON INDICATIONS: CONTUSION OF LEFT FOOT,INTIAL ECOUNTER TECHNIQUE: Noncontrast sagittal T1 spin echo and T2 fast spin echo with fat saturation, long-axis T1 spin echo and T2 fast spin echo with fat saturation, short-axis T1 spin echo and T2 fast spin echo with fat saturation through the forefoot. COMPARISON: [facility], CR, XR FOOT LT MIN 3V, 02/16/2021, 17:11. FINDINGS: Image quality: Excellent. Bones and joints: No acute trabecular bone injury. Moderate degenerative changes are seen at the 1st tarsometatarsal joint with subchondral cystic changes and marginal osteophyte formation. Mild degenerative changes are seen at the 1st metatarsophalangeal joint in the 2nd tarsometatarsal joint.. Soft tissues: Nonspecific subcutaneous edema is seen at the dorsal lateral aspect of the foot. There is mild fatty infiltration of the intrinsic foot musculature that is most likely secondary to chronic denervation changes. Chronic pressure related changes are seen in the subcutaneous tissues plantar to the 2nd and 5th metatarsal heads. Visualized flexor and extensor tendons appear intact, without tenosynovitis. The distal insertions of the peroneus brevis and longus tendons appear intact. The principal Lisfranc ligament appears intact. No soft tissue ganglion cysts or bursal fluid collections. Sagittal images demonstrate no evidence for plantar plate tears. IMPRESSION: 1. Nonspecific subcutaneous soft tissue edema at the dorsal lateral aspect of the foot. No acute trabecular bone injury is seen. 2. Moderate degenerative changes at the 1st tarsometatarsal joint, and more mild degenerative changes at the 2nd tarsometatarsal joint and 1st metatarsophalangeal joint. 3. Mild chronic denervation changes involving the intrinsic foot musculature. Dictated by: Urbano Shoemaker M.D. on 02/28/2021 at 10:19 Approved by: Urbano Shoemaker M.D. on 02/28/2021 at 10:29
== END ==
PROVIDERS: PCP Internal Medicine; Referring Provider Internal Medicine; Visit Provider Internal Medicine
DX: S90.32XA Contusion of left foot, initial encounter (principal)
CPT/HCPCS: 73718

== ENCOUNTER → 2021-08-12 14:15 | Outpatient (CLI) | payer MEDICARE, OTHER, SELFPAY ==
[2019-01-27 03:23] VITALS: BMI 36.6
[2021-08-12] MEDS: COVID-19 VACC #3, MRNA(MOD) 50 MCG/0.25 ML VIAL IM (14:21)
== END ==
PROVIDERS: PCP Internal Medicine; Visit Provider Internal Medicine
DX: Z23 Encounter for immunization (principal)
CPT/HCPCS: 0013A; 91301

== ENCOUNTER → 2021-11-18 11:07 | Outpatient (CLI) | payer MEDICARE, OTHER, SELFPAY ==
[2019-01-27 03:23] VITALS: BMI 36.6
--- NOTE | 2021-11-18 | DI.RAD.S_ITS ---
PROCEDURE: XR CHEST 2V INDICATIONS: Unspecified atrial fibrillation, Dyspnea, unspecif TECHNIQUE: 2 views of the chest were acquired. COMPARISON: [facility], , CHEST 2 VIEW, 11/06/2014, 14:42. FINDINGS: Surgical changes and devices: Median sternotomy wires. Cholecystectomy clips. Lungs and pleura: Streaky opacities in lung bases likely represent atelectasis. Elevated right hemidiaphragm is stable. No pleural effusions or pneumothorax. Mediastinum: Mediastinal contours are normal. Heart size is normal. Bones and chest wall: No suspicious bony abnormalities. Soft tissues appear unremarkable. IMPRESSION: Bibasilar atelectasis. Dictated by: Dayan Villa MD, PhD on 11/18/2021 at 17:14 Approved by: Dayan Villa MD, PhD on 11/18/2021 at 17:15
[2021-11-18 13:06] LABS: Add Manual Diff / Slide Review NO; Basophils Absolute Auto 0 /uL (0-100); Basophils Percent Auto 0.6 % (0-2); Eosinophils Absolute Auto 300 /uL (0-450); Eosinophils Percent Auto 6.7 % (2-4); Hematocrit 38.4 % (41-53); Hemoglobin 12.4 g/dL (13.5-17.5); Lymphocytes Absolute Auto 900 /uL (1100-4500); Lymphocytes Percent Auto 16.9 % (25-40); Mean Corpuscular HGB Conc 32.4 % (30-36); Mean Corpuscular Hemoglobin 26.6 PG (26-34); Mean Corpuscular Volume 82.3 fL (80-100); Monocytes Absolute Auto 600 /uL (0-900); Neutrophils Absolute Auto 3400 /uL (1500-7000); Neutrophils Percent Auto 64.8 % (50-75); Platelet Count 188 X10^3/uL (150-400); Red Blood Cell Count 4.67 X10^6/uL (4.5-5.9); Red Cell Distribution Width 16.9 % (11.6-14.8); White Blood Cell Count 5.3 X10^3/uL (4.5-11.0)
[2021-11-18 14:10] LABS: BUN Creatinine Ratio 16.8 (6-22); Blood Urea Nitrogen 21 mg/dL (9-20); Calcium 9.2 mg/dL (8.4-10.2); Carbon Dioxide 32 mmol/L (22-32); Chloride 103 mmol/L (98-107); Cholesterol 186 mg/dL (140-199); Estimated Glomerular Filt Rate 56.2 mL/min (>60); Glucose 99 mg/dL (80-110); HDL Cholesterol 38 mg/dL (40-60); HEMOLYSIS < 15 (0-50); LDL Cholesterol Calculated 131 mg/dL (<100); Potassium 4.2 mmol/L (3.4-5.1); Sodium 137 mmol/L (137-145); Triglycerides 85 mg/dL (35-150)
[2021-11-18 14:18] LABS: NT-proBNP (BNP-Adult 18+) 439 pg/mL (<450)
== END ==
PROVIDERS: PCP Internal Medicine; Referring Provider Internal Medicine Cardiovascular Disease; Visit Provider Internal Medicine Cardiovascular Disease
DX: J98.11 Atelectasis (principal); I48.91 Unspecified atrial fibrillation; I25.10 Atherosclerotic heart disease of native coronary artery without angina pectoris; R06.00 Dyspnea, unspecified; E78.00 Pure hypercholesterolemia, unspecified
CPT/HCPCS: 36415; 71046; 80048; 80061; 83880; 85025

== ENCOUNTER → 2022-06-01 16:38 | Outpatient (CLI) | payer MEDICARE, OTHER, SELFPAY ==
[2019-01-27 03:23] VITALS: BMI 36.6
[2022-06-01 17:37] LABS: Hematocrit 41.8 % (41-53); Hemoglobin 14.2 g/dL (13.5-17.5); Mean Corpuscular Hemoglobin 28.6 PG (26-34); Mean Corpuscular Volume 84.2 fL (80-100); Platelet Count 187 X10^3/uL (150-400); Red Blood Cell Count 4.97 X10^6/uL (4.5-5.9); Red Cell Distribution Width 15.7 % (11.6-14.8); White Blood Cell Count 6.3 X10^3/uL (4.5-11.0)
[2022-06-01 17:59] LABS: Alanine Aminotransferase 14 IU/L (<50); Albumin 4.3 g/dL (3.5-5.0); Albumin Globulin Ratio 1.2 (1.0-2.8); Alkaline Phosphatase 97 U/L (38-126); Aspartate Aminotransferase 27 IU/L (17-59); Bilirubin Total 0.9 mg/dL (0.2-1.3); Blood Urea Nitrogen 26 mg/dL (9-20); Calcium 9.1 mg/dL (8.4-10.2); Carbon Dioxide 28 mmol/L (22-32); Chloride 98 mmol/L (98-107); Cholesterol 186 mg/dL (140-199); Estimated Glomerular Filt Rate 53 mL/min (>60); Globulin 3.5 g/dL (1.7-4.1); Glucose 143 mg/dL (80-110); HDL Cholesterol 46 mg/dL (40-60); HEMOLYSIS < 15 (0-50); LDL Cholesterol Calculated 111 mg/dL (<100); Potassium 3.9 mmol/L (3.4-5.1); Sodium 135 mmol/L (137-145); Total Protein 7.8 g/dL (6.3-8.2); Triglycerides 147 mg/dL (35-150)
[2022-06-01 18:07] LABS: Hemoglobin A1C% w Est Avg Glu 5.9 % (4.0-6.0)
[2022-06-01 18:28] LABS: TSH w/ Reflex to FT4 2.03 uIU/mL (0.47-4.68)
[2022-06-01 19:02] LABS: Creatinine Urine Random 127.8 mg/dL
[2022-06-01 19:07] LABS: Microalbumi Creatinin Ratio Ur 8.6 ug/mg CR (<30); Microalbumin Urine Random 1.1 mg/dL (0-1.6)
== END ==
PROVIDERS: PCP Internal Medicine; Referring Provider Internal Medicine; Visit Provider Internal Medicine
DX: E78.2 Mixed hyperlipidemia (principal); Z79.01 Long term (current) use of anticoagulants; I10 Essential (primary) hypertension; I48.0 Paroxysmal atrial fibrillation; E11.42 Type 2 diabetes mellitus with diabetic polyneuropathy
CPT/HCPCS: 36415; 80053; 80061; 82043; 82570; 83036; 84443; 85027

== ENCOUNTER → 2023-03-23 16:13 | Outpatient (CLI) | payer MEDICARE, OTHER, SELFPAY ==
[2019-01-27 03:23] VITALS: BMI 36.6
[2023-03-23 16:51] LABS: Aspartate Aminotransferase 30 IU/L (17-59); BUN Creatinine Ratio 20.2 (6-22); Blood Urea Nitrogen 22 mg/dL (9-20); Carbon Dioxide 30 mmol/L (22-32); Chloride 98 mmol/L (98-107); Cholesterol 179 mg/dL (140-199); Estimated Glomerular Filt Rate > 60 mL/min (>60); Glucose 102 mg/dL (80-110); HDL Cholesterol 65 mg/dL (40-60); HEMOLYSIS < 15 (0-50); LDL Cholesterol Calculated 96 mg/dL (<100); Potassium 4.7 mmol/L (3.4-5.1); Sodium 135 mmol/L (137-145); Triglycerides 92 mg/dL (35-150)
== END ==
PROVIDERS: PCP Internal Medicine; Referring Provider Internal Medicine; Visit Provider Internal Medicine
DX: E11.42 Type 2 diabetes mellitus with diabetic polyneuropathy (principal); E78.2 Mixed hyperlipidemia; I10 Essential (primary) hypertension
CPT/HCPCS: 36415; 80048; 80061; 83036; 84450

== ENCOUNTER → 2023-12-03 14:36 | Outpatient (CLI) | payer MEDICARE, OTHER, SELFPAY ==
[2019-01-27 03:23] VITALS: BMI 36.6
[2023-12-03 15:24] LABS: BUN Creatinine Ratio 21.3 (6-22); Blood Urea Nitrogen 26 mg/dL (9-20); Calcium 9.4 mg/dL (8.4-10.2); Carbon Dioxide 33 mmol/L (22-32); Chloride 105 mmol/L (98-107); Estimated Glomerular Filt Rate > 60 mL/min (>60); Glucose 105 mg/dL (80-110); HEMOLYSIS 18 (0-50); Hemoglobin A1C% w Est Avg Glu 5.7 % (4.0-6.0); Potassium 4.2 mmol/L (3.4-5.1); Sodium 139 mmol/L (137-145)
[2023-12-03 16:36] LABS: Microalbumin Urine Random 5.5 mg/dL (0-1.6)
[2023-12-03 17:23] LABS: Creatinine Urine Random 328.8 mg/dL; Microalbumi Creatinin Ratio Ur 16.7 ug/mg CR (<30)
== END ==
PROVIDERS: PCP Internal Medicine; Referring Provider Internal Medicine; Visit Provider Internal Medicine
DX: E11.42 Type 2 diabetes mellitus with diabetic polyneuropathy (principal); I48.0 Paroxysmal atrial fibrillation
CPT/HCPCS: 36415; 80048; 82043; 82570; 83036

== ENCOUNTER → 2024-07-02 14:44 | Outpatient (CLI) | payer MEDICARE, OTHER, SELFPAY ==
[2019-01-27 03:23] VITALS: BMI 36.6
--- NOTE | 2024-07-02 14:45 | DI.CT.S_ITS ---
PROCEDURE: CT HEAD/BRAIN WO CON INDICATIONS: cognitive impairment TECHNIQUE: Noncontrast 4.5 mm thick angled axial sections acquired from the foramen magnum to the vertex, with coronal and sagittal reformats. For radiation dose reduction, the following was used: automated exposure control, adjustment of mA and/or kV according to patient size. COMPARISON: None. FINDINGS: Image quality: Diagnostic. CSF spaces: Basal cisterns are patent. No extra-axial fluid collections. Ventricles are normal in size and shape. Brain: No midline shift. No intracranial masses or hemorrhage. Gonzalez-white matter interface is normal. Moderate cerebral and cerebellar volume loss with multifocal white matter chronic ischemic change noted. Atherosclerotic calcification noted associated with cavernous segments of both internal carotid arteries. Skull and face: Calvarium and visualized facial bones are intact, without suspicious lesions. Sinuses: Visualized sinuses and mastoids are clear. IMPRESSION: Atrophy and chronic ischemic change without acute hemorrhage or mass effect. Approved by: Bryant Drew M.D. on 07/02/2024 at 17:30
== END ==
PROVIDERS: PCP Internal Medicine; Referring Provider Internal Medicine; Visit Provider Internal Medicine
DX: G31.84 Mild cognitive impairment of uncertain or unknown etiology; I67.9 Cerebrovascular disease, unspecified
CPT/HCPCS: 70450

== ENCOUNTER → 2025-04-02 12:01 | Outpatient (CLI) | payer MEDICARE, OTHER, SELFPAY ==
[2019-01-27 03:23] VITALS: BMI 36.6
[2025-04-02 13:08] LABS: Hematocrit 42.3 % (41-53); Hemoglobin 14.9 g/dL (13.5-17.5); Mean Corpuscular HGB Conc 35.2 % (30-36); Mean Corpuscular Hemoglobin 31.4 PG (26-34); Mean Corpuscular Volume 89.1 fL (80-100); Platelet Count 186 X10^3/uL (150-400)
[2025-04-02 13:22] LABS: Hemoglobin A1C% w Est Avg Glu 5.4 % (4.0-6.0)
[2025-04-02 13:30] LABS: Blood Urea Nitrogen 23 mg/dL (9-20); Calcium 9.5 mg/dL (8.4-10.2); Carbon Dioxide 28 mmol/L (22-32); Chloride 98 mmol/L (98-107); Cholesterol 141 mg/dL (140-199); Estimated Glomerular Filt Rate > 60 mL/min (>60); Glucose 115 mg/dL (70-99); HDL Cholesterol 55 mg/dL (40-60); HEMOLYSIS < 15 (0-50); Potassium 4.2 mmol/L (3.4-5.1); Sodium 134 mmol/L (137-145); Triglycerides 97 mg/dL (35-150)
[2025-04-02 14:02] LABS: TSH w/ Reflex to FT4 2.83 uIU/mL (0.47-4.68)
[2025-04-02 14:21] LABS: Vitamin B12 Reflex MMA if <400 500 pg/mL (239-931)
== END ==
PROVIDERS: PCP Internal Medicine; Referring Provider Internal Medicine; Visit Provider Internal Medicine
DX: E78.2 Mixed hyperlipidemia (principal); E11.42 Type 2 diabetes mellitus with diabetic polyneuropathy; E53.8 Deficiency of other specified B group vitamins; I48.0 Paroxysmal atrial fibrillation
CPT/HCPCS: 36415; 80048; 80061; 82607; 83036; 84443; 85027

== ENCOUNTER → 2025-04-21 13:14 | Outpatient (CLI) | payer MEDICARE, OTHER, SELFPAY ==
[2019-01-27 03:23] VITALS: BMI 36.6
--- NOTE | 2025-04-21 13:16 | DI.CT.S_ITS ---
PROCEDURE: CT HEAD/BRAIN WO CON INDICATIONS: NPH TECHNIQUE: Noncontrast 4.5 mm thick angled axial sections acquired from the foramen magnum to the vertex, with coronal and sagittal reformats. For radiation dose reduction, the following was used: automated exposure control, adjustment of mA and/or kV according to patient size. COMPARISON: [facility], CT, CT HEAD/BRAIN WO CON, 01/28/2019, 19:09. [facility], CT, CT HEAD/BRAIN WO CON, 07/02/2024, 15:04. FINDINGS: Image quality: Diagnostic. CSF spaces: Basal cisterns are patent. No extra-axial fluid collections. Symmetric prominence of the lateral ventricles can again be seen. The lateral ventricles are similar to 2023. Brain: No intracranial bleeds or mass effect. There is cerebral volume loss, with resultant ventricular and sulcal prominence. There are periventricular and deep white matter chronic small vessel ischemic changes. There is intracranial internal carotid artery atherosclerosis. Skull and face: Calvarium and visualized facial bones appear intact, without suspicious lesions. Sinuses: Visualized sinuses and mastoids are clear. IMPRESSION: Symmetric prominence of the lateral ventricles again seen, which are larger than would be expected, given the degree of sulcal atrophy. 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 Dictated by: Clarence Haddad M.D. on 04/21/2025 at 14:08 Approved by: Clarence Haddad M.D. on 04/21/2025 at 14:09
== END ==
LOC: CT 13:16
PROVIDERS: PCP Internal Medicine; Referring Provider Internal Medicine; Visit Provider Internal Medicine
DX: G91.2 (Idiopathic) normal pressure hydrocephalus (principal); I65.29 Occlusion and stenosis of unspecified carotid artery
CPT/HCPCS: 70450

== ENCOUNTER → 2025-06-25 12:19 | Outpatient (CLI) | payer MEDICARE, OTHER, SELFPAY ==
[2019-01-27 03:23] VITALS: BMI 36.6
--- NOTE | 2025-06-25 12:22 | DI.MRI.S_ITS ---
PROCEDURE: MR THORACIC SPINE WO CON INDICATIONS: LOWER BACK PAIN TECHNIQUE: Noncontrast sagittal T1 spine echo and T2 fast spin echo, sagittal STIR, and T2 fast spin echo through the thoracic spine. COMPARISON: None. FINDINGS: Image quality: Excellent. Alignment and Curvature: There is normal bony alignment. Bone Marrow: Marrow is of normal overall signal. No acute vertebral body compression fractures. Spinal Cord: Visualized spinal cord is normal in size and signal. Paraspinous Soft Tissues: No paravertebral masses. Sternotomy wires are noted. [id number] left renal cyst. Miscellaneous: On axial images, central canal and foramina appear widely patent at all scanned levels. IMPRESSION: No acute osseous abnormality. No significant spinal canal stenosis or neural foraminal narrowing in the thoracic spine. Approved by: Urbano Shoemaker M.D. on 06/25/2025 at 15:08
--- NOTE | 2025-06-25 12:22 | DI.MRI.S_ITS ---
PROCEDURE: MR CERVICAL SPINE WO CON INDICATIONS: NECK PAIN TECHNIQUE: Noncontrast sagittal T1 spin echo and T2 fast spin echo, sagittal STIR, foraminal oblique sagittal T2 fast spin echo, and axial gradient echo or T2 fast spin echo through the cervical spine. COMPARISON: None. FINDINGS: Image quality: Excellent. Alignment and Curvature: There is normal bony alignment. Bone Marrow: Probable partial osseous bridging across the C5-6 disc space. Modic type 1 degenerative endplate edema surrounding the C4-5 disc space. Marrow demonstrates normal overall signal. Spinal Cord: Visualized spinal cord has normal size and signal. No cerebellar tonsillar herniation. Paraspinous Soft Tissues: Lack of normal flow void is seen in the left vertebral artery. No acute edema is seen in the included portion of the inferior cerebellum. No paravertebral masses. Prevertebral soft tissues are normal in thickness. C2-C3: No significant spinal canal stenosis or neural foraminal narrowing. C3-C4: Disc desiccation and posterior disc-osteophyte complex as well as bilateral uncovertebral joint and facet hypertrophy. Findings result in moderate to severe narrowing of the spinal canal with effacement of the ventral and dorsal CSF spaces and mild mass effect on the left ventral cord without abnormal cord signal. There is severe left and moderate right neural foraminal narrowing. C4-C5: Disc desiccation and posterior disc-osteophyte complex as well as bilateral uncovertebral joint and facet hypertrophy. Findings result in moderate narrowing of the spinal canal with effacement of the ventral and dorsal CSF spaces and no abnormal cord signal. Moderate left and moderate to severe right neural foraminal narrowing. C5-C6: Ossification of the disc space. Small posterior disc-osteophyte complex and bilateral uncovertebral joint and facet hypertrophy. Findings result in [id number] narrowing of the spinal canal as well as moderate to severe bilateral neural foraminal narrowing. C6-C7: Disc desiccation and mild posterior disc-osteophyte complex and bilateral uncovertebral joint and facet hypertrophy. Findings result in mild narrowing of the spinal canal and moderate left and moderate to severe right neural foraminal narrowing. C7-T1: No significant spinal canal stenosis or neural foraminal narrowing. IMPRESSION: 1. Lack of normal left vertebral artery flow void, which may indicate arterial stenosis or occlusion of uncertain age. Recommend CT angiogram of the head neck for further evaluation. 2. At C3-4, degenerative changes result in moderate to severe narrowing of the spinal canal with mild mass effect on the spinal cord but no abnormal cord signal. 3. Multilevel bilateral high-grade neural foraminal narrowing as indicated in the body of the report. Approved by: Urbano Shoemaker M.D. on 06/25/2025 at 14:38
--- NOTE | 2025-06-25 12:22 | DI.MRI.S_ITS ---
PROCEDURE: MR LUMBAR SPINE WO CON INDICATIONS: BACK PAIN TECHNIQUE: Noncontrast sagittal T1 spin echo and T2 fast echo, sagittal STIR, and T2 fast spin echo through the lumbar spine. In cases with scoliosis, additional coronal T2 fast spin echo may be performed. COMPARISON: None. FINDINGS: Image quality: Excellent. Alignment and Curvature: There is normal bony alignment. Bone Marrow: Marrow is of normal overall signal. No acute vertebral body compression fractures. Degenerative changes at the sacroiliac joints bilaterally. Spinal Cord: Conus medullaris terminates at the L1 level. Visualized cord demonstrates normal signal and size. Paraspinous Soft Tissues: No paravertebral masses. Grade 2 fatty infiltration of the paraspinous musculature. [id number] left renal cyst. T12-L1: No significant spinal canal stenosis or neural foraminal narrowing. L1-L2: Disc desiccation and mild disc bulging. No significant spinal canal stenosis or neural foraminal narrowing. L2-L3: Disc desiccation and mild circumferential disc bulging as well as mild bilateral facet hypertrophy. Mild bilateral neural foraminal narrowing is seen without significant spinal canal stenosis. L3-L4: Disc desiccation and mild circumferential distal bulging as well as moderate bilateral facet hypertrophy. Findings result in mild narrowing of the spinal canal and mild bilateral neural foraminal narrowing. L4-L5: Disc desiccation and circumferential disc bulging as well as moderate bilateral facet hypertrophy. Findings result in mild bilateral neural foraminal narrowing as well as mild narrowing of the spinal canal and crowding of the right lateral recess. L5-S1: Disc desiccation and mild circumferential disc bulging as well as moderate bilateral facet hypertrophy. Findings do not result in significant spinal canal stenosis or neural foraminal narrowing. IMPRESSION: Mild multilevel degenerative disc disease and facet hypertrophy as described in the body of the report. No high-grade spinal canal stenosis or high-grade neural foramina Approved by: Urbano Shoemaker M.D. on 06/25/2025 at 15:46
== END ==
PROVIDERS: PCP Internal Medicine; Referring Provider Internal Medicine
DX: M48.02 Spinal stenosis, cervical region (principal); M47.812 Spondylosis without myelopathy or radiculopathy, cervical region; M48.062 Spinal stenosis, lumbar region with neurogenic claudication; M51.369 Other intervertebral disc degeneration, lumbar region without mention of lumbar back pain or lower extremity pain; M51.379 Other intervertebral disc degeneration, lumbosacral region without mention of lumbar back pain or lower extremity pain; M47.816 Spondylosis without myelopathy or radiculopathy, lumbar region; M47.817 Spondylosis without myelopathy or radiculopathy, lumbosacral region
CPT/HCPCS: 72141; 72146; 72148

== ENCOUNTER → 2025-08-11 16:35 | Outpatient (CLI) | payer MEDICARE, OTHER, SELFPAY ==
[2019-01-27 03:23] VITALS: BMI 36.6
[2025-08-11 16:54] LABS: Add Manual Diff / Slide Review NO; Hematocrit 42.4 % (41-53); Hemoglobin 14.7 g/dL (13.5-17.5); Lymphocytes Absolute Auto 1000 /uL (1100-4500); Mean Corpuscular HGB Conc 34.6 % (30-36); Mean Corpuscular Hemoglobin 31.0 PG (26-34); Mean Corpuscular Volume 89.6 fL (80-100); Platelet Count 175 X10^3/uL (150-400)
[2025-08-11 17:06] LABS: INR 1.4 (0.9-1.3); Prothrombin Time 15.8 SECONDS (9.4-12.5)
[2025-08-11 17:09] LABS: PTT Partial Thromboplastin Tim 35 SECONDS (25.1-36.5)
== END ==
PROVIDERS: PCP Internal Medicine; Referring Provider Family Medicine; Visit Provider Family Medicine
DX: G31.84 Mild cognitive impairment of uncertain or unknown etiology (principal); Z79.01 Long term (current) use of anticoagulants; G93.89 Other specified disorders of brain; R26.89 Other abnormalities of gait and mobility; R39.15 Urgency of urination
CPT/HCPCS: 36415; 85025; 85610; 85730